=== PATIENT | male | born 1945 | race Caucasian/White ===

== ENCOUNTER → 2020-10-18 10:51 | Outpatient (BNVA) | payer MEDICARE, OTHER, SELFPAY | PROVIDERS: PCP Family Medicine; Visit Provider Urology | DX: N40.1 Benign prostatic hyperplasia with lower urinary tract symptoms (principal); R35.0 Frequency of micturition; R35.1 Nocturia; R39.12 Poor urinary stream; N13.8 Other obstructive and reflux uropathy | CPT/HCPCS: Q3014 ==

== ENCOUNTER → 2020-11-01 09:08 | Outpatient (BNVA) | payer MEDICARE, OTHER, SELFPAY | PROVIDERS: PCP Family Medicine; Visit Provider Urology | DX: R35.0 Frequency of micturition (principal); R39.12 Poor urinary stream; N40.1 Benign prostatic hyperplasia with lower urinary tract symptoms; N13.8 Other obstructive and reflux uropathy | CPT/HCPCS: Q3014 ==

== ENCOUNTER → 2021-06-12 15:07 | Outpatient (BNVA) | payer MEDICARE, OTHER, SELFPAY | PROVIDERS: Visit Provider Urology | CPT/HCPCS: Q3014 ==

== ENCOUNTER → 2021-07-24 14:49 | Outpatient (BNVA) | payer MEDICARE, OTHER, SELFPAY | PROVIDERS: PCP Family Medicine; Visit Provider Urology | DX: Z13.89 Encounter for screening for other disorder (principal) | CPT/HCPCS: Q3014 ==

== ENCOUNTER → 2022-09-11 16:26 | Outpatient (BNVA) | payer MEDICARE, OTHER, SELFPAY | PROVIDERS: Visit Provider Psychiatry & Neurology Psychiatry | DX: F32.5 Major depressive disorder, single episode, in full remission (principal); Z79.899 Other long term (current) drug therapy | CPT/HCPCS: Q3014 ==

== ENCOUNTER → 2022-09-18 11:19 | Outpatient (BNVA) | payer MEDICARE, OTHER, SELFPAY | PROVIDERS: PCP Family Medicine; Visit Provider Urology | DX: N40.1 Benign prostatic hyperplasia with lower urinary tract symptoms (principal); N13.8 Other obstructive and reflux uropathy; N32.81 Overactive bladder | CPT/HCPCS: 51798; 99212 ==

== ENCOUNTER → 2022-11-27 14:31 | Outpatient (BNVA) | payer MEDICARE, OTHER, SELFPAY | PROVIDERS: PCP Family Medicine; Visit Provider Psychiatry & Neurology Psychiatry | DX: F32.5 Major depressive disorder, single episode, in full remission (principal); F10.91 Alcohol use, unspecified, in remission | CPT/HCPCS: 90833; 99212 ==

== ENCOUNTER → 2022-12-26 09:05 | Outpatient (BNVA) | payer MEDICARE, OTHER, SELFPAY | PROVIDERS: PCP Family Medicine; Visit Provider Urology | DX: N32.81 Overactive bladder (principal); R35.0 Frequency of micturition; R35.1 Nocturia | CPT/HCPCS: 51798; 99212 ==

== ENCOUNTER 2023-04-30 11:07 | Outpatient (AMB) | payer MEDICARE, OTHER, SELFPAY ==
--- NOTE | 2023-04-30 11:51 | MHC.OFFVISPS ---
Intake Intake Visit Reasons: depression Allergies No Known Allergies Allergy (Verified 12/26/22 09:07) HPI- Psychiatric Chief Complaint: depression HPI Narrative: Patient is a 78-year-old male history of alcoholism active in a history of recurrent depression and anxiety somewhat worsened recently after sudden of his brother. Patient continues to have a life marked by periods in [facility] where he enjoys opera and connection with his children and grandchildren and living in immersed best uses. There is some degree of disconnection with his at times and he has been feeling somewhat more melancholy and has been trying to work through this. Past Psychiatric History: hx recurrent depression anxiety alcohol abuse in past Mental Status Exam Mental Status Exam Narrative: Mental Status Exam Narrative: Appearance: Casually dressed some anxiety noted on facial expression Behavior: Cooperative appropriate psychomotor: Within normal limits Speech: Normal volume and prosody Thought proccess logical and goal-directed Thought content: Future oriented no self-harming thoughts some melancholic thoughts feeling disconnected at times alone Mood: some anxiety and dysphoria Affect: Appropriate to mood somewhat constricted SI:denies HI:denies VH/AH:none Delusions: None Insight/judgment: Good insight and judgment help with spiritual beliefs Memory/cog: Intact Assessment and Plan Assessment & Plan (1) Major depressive disorder with single episode, in partial remission: Status: Acute Code(s): F32.4 - Major depressive disorder, single episode, in partial remission (2) Generalized anxiety disorder: Status: Acute Code(s): F41.1 - Generalized anxiety disorder (3) Alcohol use disorder in remission: Status: Acute Code(s): F10.91 - Alcohol use, unspecified, in remission (4) Overactive bladder: Status: Acute Code(s): N32.81 - Overactive bladder Plan The patient has had some increase in melancholy rumination somewhat appropriate and triggered by of his brother which was quite sudden. Patient at times can feel alienated which is a longstanding feeling for him for both his and can feel disconnected at times from his children. He does very much enjoyed the arts and particularly opera. Encouraged to see if he could better make his needs known or perhaps join a community that enjoys opera. This could be a source of connection. Discussed option of L methyl folate for augmentation . Also reviewed option to increase Effexor to 150 mg blood pressure unremarkable encouraged daily walking in nature as possible patient does have history of cerebral aneurysm which has been corrected and does have periodic radiological Observation of the brain to make sure there has been no change or other aneurysm aneurysm forming. Is clearly important that the patient's blood pressure stay in control. Encourage olguin mind group or other support group consider refuge recovery in addition to traditional 12 step AA Counseling and coordination of Care Pt. Self Management counselin Step program, Breathing, Behavior activation and Cognitive restructuring Medication management counseling: Effectiveness, Side effects and Dosing range Diagnosis and Prognosis Counseling: Adequacy of current interventions Details: I spent [40] minutes reviewing the record, seeing the patient and documenting in the medical record. Counseling provided to the patient/caregiver as outlined below. Addressed patient/caregiver concerns regarding current medication regime including effective adherence. Addressed patient/caregiver concerns regarding diagnosis and prognosis including accuracy of diagnosis, prognosis over time, impact of diagnosis. Addressed patient/caregiver concerns regarding impact of recent stressors. 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
== END 2023-04-30 12:16 | disposition home or self-care (01) ==
LOC: HO.HOP 11:07
PROVIDERS: PCP Family Medicine; Visit Provider Psychiatry & Neurology Psychiatry
DX: F32.4 Major depressive disorder, single episode, in partial remission (principal); F41.1 Generalized anxiety disorder; F10.91 Alcohol use, unspecified, in remission; N32.81 Overactive bladder
CPT/HCPCS: 90833; 99213

== ENCOUNTER → 2023-04-30 11:07 | Outpatient (BNVA) | payer MEDICARE, OTHER, SELFPAY | PROVIDERS: PCP Family Medicine; Visit Provider Psychiatry & Neurology Psychiatry | DX: F32.4 Major depressive disorder, single episode, in partial remission (principal); F41.1 Generalized anxiety disorder; F10.91 Alcohol use, unspecified, in remission; N32.81 Overactive bladder | CPT/HCPCS: 90833; 99212 ==

== ENCOUNTER 2023-06-12 11:50 | Outpatient (AMB) | payer MEDICARE, OTHER, SELFPAY ==
--- NOTE | 2023-06-12 11:44 | A.OFFPSYCH_ITS ---
Intake Intake Visit Reasons: Depression Allergies No Known Allergies Allergy (Verified 12/26/22 09:07) Medication List - Last Reconciled 06/12/23 by Yazan Antony MD losartan 50 mg PO DAILY solifenacin 10 mg PO DAILY 90 days venlafaxine ER 37.5 mg PO DAILY venlafaxine ER 75 mg PO DAILY HPI- Psychiatric Chief Complaint: Depression HPI Narrative: Pt is a 78 yo male doing better more active agin taking l methyl folate 15 mg `has been taking effexor 112.5 mg has been more social trying to be more engaged discussing how group home can be difficult transition last drank january 05o2 some periods of amotivation has been trying to be more ac tive can have brief periods of melancholy. Has much better relationship generally with his children no new medical concerns feeling more stable generally Past Psychiatric History: hx recurrent depression anxiety alcohol abuse in past Mental Status Exam Mental Status Exam Narrative: Mental Status Exam Narrative: Appearance: Casually dressed some anxiety noted on facial expression Behavior: Cooperative appropriate psychomotor: Within normal limits Speech: Normal volume and prosody Thought proccess logical and goal-directed Thought content: Future oriented no self-harming thoughts feeling much better Mood: euthymic Affect: Appropriate to mood SI:denies HI:denies VH/AH:none Delusions: None Insight/judgment: Good insight and judgment help with spiritual beliefs Memory/cog: Intact Assessment and Plan Assessment & Plan (1) Major depression in remission: Status: Acute Code(s): F32.5 - Major depressive disorder, single episode, in full remission (2) Generalized anxiety disorder: Status: Acute Code(s): F41.1 - Generalized anxiety disorder Plan cont effexor 112.5 mg l methyl folate encourage light box needed behavioral activation decrease isolation patient very active recovery this is chronic quite helpful to him and rewarding. Mood generally stable not overly depressed Counseling and coordination of Care Pt. Self Management counselin Step program, Sleep hygiene and Behavior activation Medication management counseling: Effectiveness Details: I spent [45] minutes reviewing the record, seeing the patient and documenting in the medical record. Counseling provided to the patient/caregiver as outlined below. Addressed patient/caregiver concerns regarding current medication regime including effective adherence. Addressed patient/caregiver concerns regarding diagnosis and prognosis including accuracy of diagnosis, prognosis over time, impact of diagnosis. Addressed patient/caregiver concerns regarding impact of recent stressors. 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
== END 2023-06-12 20:56 | disposition home or self-care (01) ==
LOC: HO.HOP 11:50
PROVIDERS: PCP Family Medicine; Visit Provider Psychiatry & Neurology Psychiatry
DX: F32.5 Major depressive disorder, single episode, in full remission (principal); F41.1 Generalized anxiety disorder
CPT/HCPCS: 90833; 99213

== ENCOUNTER → 2023-06-12 11:50 | Outpatient (BNVA) | payer MEDICARE, OTHER, SELFPAY | PROVIDERS: PCP Family Medicine; Visit Provider Psychiatry & Neurology Psychiatry | DX: F32.5 Major depressive disorder, single episode, in full remission (principal); F41.1 Generalized anxiety disorder; F10.21 Alcohol dependence, in remission | CPT/HCPCS: 90833; 99212 ==

== ENCOUNTER 2023-08-13 17:14 | Outpatient (AMB) | payer MEDICARE, OTHER, SELFPAY ==
--- NOTE | 2023-08-13 10:53 | MHC.OFFVISPS ---
Intake Intake Visit Reasons: depression Allergies No Known Allergies Allergy (Verified 12/26/22 09:07) HPI- Psychiatric Chief Complaint: depression HPI Narrative: Pt has generally been doing well remains sober very active in recovery no sig depressive episodes cardiac stable has been stable on effexor rare depressive sx Past Psychiatric History: hx recurrent depression anxiety alcohol abuse in past Mental Status Exam Mental Status Exam Narrative: Mental Status Exam Narrative: Appearance: Casually dressed some anxiety noted on facial expression Behavior: Cooperative appropriate psychomotor: Within normal limits Speech: Normal volume and prosody Thought proccess logical and goal-directed Thought content: Future oriented no self-harming thoughts feeling much better Mood: euthymic Affect: Appropriate to mood SI:denies HI:denies VH/AH:none Delusions: None Insight/judgment: Good insight and judgment help with spiritual beliefs Memory/cog: Intact Assessment and Plan Assessment & Plan (1) Generalized anxiety disorder: Status: Acute Code(s): F41.1 - Generalized anxiety disorder (2) Alcohol use disorder in remission: Status: Acute Code(s): F10.91 - Alcohol use, unspecified, in remission (3) Major depression in remission: Status: Acute Code(s): F32.5 - Major depressive disorder, single episode, in full remission Plan pt generally stable cont plan of care could inc effexor as needed cerebral aneurysm repair stable no cardiac issues brother recently had cardiac event Counseling and coordination of Care Pt. Self Management counselin Step program and Behavior activation Details-Self Mgmt counseling: issues related to managing Diagnosis and Prognosis Counseling: Impact of diagnosis on life functions and Adequacy of current interventions Details: I spent [35] minutes reviewing the record, seeing the patient and documenting in the medical record. Counseling provided to the patient/caregiver as outlined below. Addressed patient/caregiver concerns regarding current medication regime including effective adherence. Addressed patient/caregiver concerns regarding diagnosis and prognosis including accuracy of diagnosis, prognosis over time, impact of diagnosis. Addressed patient/caregiver concerns regarding impact of recent stressors. 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
== END 2023-08-13 17:15 | disposition home or self-care (01) ==
LOC: HO.HOP 17:14
PROVIDERS: PCP Family Medicine; Visit Provider Psychiatry & Neurology Psychiatry
DX: F41.1 Generalized anxiety disorder (principal); F10.91 Alcohol use, unspecified, in remission; F32.5 Major depressive disorder, single episode, in full remission
CPT/HCPCS: 90833; 99213

== ENCOUNTER → 2023-08-13 17:14 | Outpatient (BNVA) | payer MEDICARE, OTHER, SELFPAY | PROVIDERS: PCP Family Medicine; Visit Provider Psychiatry & Neurology Psychiatry | DX: F32.5 Major depressive disorder, single episode, in full remission (principal); F41.1 Generalized anxiety disorder; F10.91 Alcohol use, unspecified, in remission | CPT/HCPCS: 90833; 99212 ==

== ENCOUNTER 2023-12-30 11:09 | Outpatient (AMB) | payer MEDICARE, OTHER, SELFPAY ==
--- NOTE | 2023-12-30 11:29 | MHC.OFFVISPS ---
Intake Intake Visit Reasons: Depression Allergies No Known Allergies Allergy (Verified 12/31/23 08:33) Medication List - Last Reconciled 12/30/23 by Yazan Antony MD allopurinol 100 mg PO DAILY indomethacin 50 mg PO BID losartan 50 mg PO DAILY venlafaxine ER 37.5 mg PO DAILY venlafaxine ER 75 mg PO DAILY HPI- Psychiatric Chief Complaint: Depression HPI Narrative: Pt generally doing well lives here and [place] mood has generally been ok has light box uses occassionally . Recent MRI of brain showed stabilized aneurysm previously treated. No new lesions. Patient able to enjoy things future oriented enjoys traveling to [place] and back to [facility] where he lives. Has been stable on Effexor. He does have overactive bladder which can be problematic regarding quality of life Past Psychiatric History: hx recurrent depression anxiety alcohol abuse in past Mental Status Exam Mental Status Exam Narrative: Mental Status Exam Narrative: Appearance: Casually dressed some anxiety noted on facial expression Behavior: Cooperative appropriate psychomotor: Within normal limits Speech: Normal volume and prosody Thought proccess logical and goal-directed Thought content: Future oriented generally feeling grateful feeling like he is doing well connected with family Mood: euthymic Affect: Appropriate to mood SI:denies HI:denies VH/AH:none Delusions: None Insight/judgment: Good insight and judgment help with spiritual beliefs Memory/cog: Intact Assessment and Plan Assessment & Plan (1) Generalized anxiety disorder: Status: Acute Code(s): F41.1 - Generalized anxiety disorder (2) Alcohol use disorder in remission: Status: Acute Code(s): F10.91 - Alcohol use, unspecified, in remission (3) Major depression in remission: Status: Acute Code(s): F32.5 - Major depressive disorder, single episode, in full remission (4) Overactive bladder: Status: Acute Code(s): N32.81 - Overactive bladder Plan Continue Effexor discussed issues related to quality of life maintenance of sobriety Medications: Refilled venlafaxine ER 37.5 mg PO DAILY 90 caps 1RF venlafaxine ER 75 mg PO DAILY 90 caps 1RF Discontinued solifenacin Discontinued Reason: Patient no longer taking 10 mg PO DAILY 90 days 90 tabs 3RF N32.81 - Overactive bladder Counseling and coordination of Care Pt. Self Management counselin Step program, Breathing and Maintenance-social rhythm Medication management counseling: Effectiveness, Side effects and Dosing range Diagnosis and Prognosis Counseling: Adequacy of current interventions Details-Diagnosis/Prognosis counseling: Patient had very brief low. Otherwise has been stable Details: I spent [30] minutes reviewing the record, seeing the patient and documenting in the medical record. Counseling provided to the patient/caregiver as outlined below. Addressed patient/caregiver concerns regarding current medication regime including effective adherence. Addressed patient/caregiver concerns regarding diagnosis and prognosis including accuracy of diagnosis, prognosis over time, impact of diagnosis. Addressed patient/caregiver concerns regarding impact of recent stressors. 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 Substance History: hx alcohol dep sober x yrs active in recovery Trauma History: pos Coding Level of Care Code Est Pt Level 4 (55739) Diagnoses Generalized anxiety disorder F41.1 Alcohol use disorder in remission F10.91 Major depression in remission F32.5 Overactive bladder N32.81
== END 2023-12-30 12:07 | disposition home or self-care (01) ==
LOC: HO.HOP 11:09
PROVIDERS: PCP Family Medicine; Visit Provider Psychiatry & Neurology Psychiatry
DX: F41.1 Generalized anxiety disorder (principal); F10.91 Alcohol use, unspecified, in remission; F32.5 Major depressive disorder, single episode, in full remission; N32.81 Overactive bladder
CPT/HCPCS: 99214

== ENCOUNTER → 2023-12-30 11:09 | Outpatient (BNVA) | payer MEDICARE, OTHER, SELFPAY | PROVIDERS: PCP Family Medicine; Visit Provider Psychiatry & Neurology Psychiatry | DX: F41.1 Generalized anxiety disorder (principal); F10.91 Alcohol use, unspecified, in remission; F32.5 Major depressive disorder, single episode, in full remission; N32.81 Overactive bladder | CPT/HCPCS: 99212 ==

== ENCOUNTER 2023-12-31 08:23 | Outpatient (AMB) | payer MEDICARE, OTHER, SELFPAY ==
--- NOTE | 2023-12-31 08:32 | A.OFFVIS_ITS ---
Intake Intake Visit Reasons: 1Y PVR(VM To Confirm) Intake Note: Patient presents today for a yearly follow up and PVR Meds- None Allergies to Antibiotic- No Known Allergies Post Void Residual: 55ml Wallpaper Remover Steam Required: No Accompanied by: Self / Same As Patient Allergies No Known Allergies Allergy (Verified 12/31/23 08:33) Medication List - Last Reconciled 12/31/23 by Herbert Kee MD allopurinol 100 mg PO DAILY fesoterodine ER (Toviaz) 8 mg PO DAILY 30 days indomethacin 50 mg PO BID losartan 50 mg PO DAILY venlafaxine ER 37.5 mg PO DAILY venlafaxine ER 75 mg PO DAILY HPI HPI Comments History of Present Illness Details Alex Ayon is very pleasant male. He is a patient of Dr Manrique. He is seen for the following urologic conditions - lower urinary tract symptoms Twelve month follow-up Solifenacin at 10 mg PVR 55 Having difficulty with progression of bladder instability Involved bathroom planning and uses bathroom when out Discussed trial Toviaz with follow-up cystoscopy Lower Urinary Tract Symptoms: Primarily irritative symptoms Prior medications - Failed oxybutynin secondary to dry mouth and constipation, did not tolerate terazosin secondary to dizziness, Myrbetriq had minimal difference, solifenacin lost effect Current visit is for predominate imitative symptoms. Current treatment includes no medications Prostate Symptom Score 11/24 , Mild (0-8), Bother 3. - PSA 05/26 2.5 Symptoms include 11/24 , incomplete emptying, urgency, weak stream, and are progressing 03/24 , incomplete emptying, weak stream, and are improving. Results from testing include cystoscopy no abnormality seen 08/24 NAD renal/bladder us Yes date 03/16/2020 PVR 10 prostate size 40g Prostate volume 30-50gm. Testing at next visit will include bladder scan. Treatment plan - 2 month follow-up cystoscopy [facility] Medical History Cerebral aneurysm without rupture Generalized anxiety disorder Alcohol use disorder in remission Bladder outlet obstruction Incomplete emptying of bladder Weak urinary stream Urinary urgency Review of Systems Const Denies chills and Denies fever(s) Card Reports no additional complaints and Denies syncope Resp Denies cough GI Denies abdominal pain and Denies heartburn Reports as per HPI and Denies change in libido Neuro Denies syncope Psych Denies change in libido Endo Denies change in libido Physical Exam Const General: cooperative, healthy appearing, comfortable and no acute distress Orientation/consciousness: patient oriented x3 HEENT Face and sinus: Yes normal facial exam Mouth: moist mucous membranes Neck Neck: Yes normal visual inspection, Yes full ROM and Yes trachea midline Chest Chest palpation & inspection: normal inspection of the chest Resp Effort & Inspection: normal respiratory effort, able to speak in complete sentences and no respiratory distress GI Inspection: Yes normal to inspection Back/Spine/Pelvis Cervical Spine: normal cervical lordosis Thoracic/Lumbar Spine: thoracic and lumbar spine normal to inspection Skin General skin exam: no rashes or lesions noted Neuro General: patient oriented x3, gait normal, tone normal and moves all extremities Extrem General: Yes normal to inspection and Yes capillary refill normal Office Procedures Post Void Residual Post Residual Void Post Void Residual (PVR): 55 [id number] Void Residual by ultrasound Assessment & Plan Assessment & Plan (1) Urinary frequency: Code(s): R35.0 - Frequency of micturition (2) Weak urinary stream: Code(s): R39.12 - Poor urinary stream (3) BPH w urinary obs/LUTS: Code(s): N40.1 - Benign prostatic hyperplasia with lower urinary tract symptoms; N13.8 - Other obstructive and reflux uropathy Plan Two month follow-up cystoscopy Orders: Orders AMB Post Void Residual by ultrasound Today R33.9 - Retention of urine, unspecified Medications: New fesoterodine ER (Toviaz) 8 mg PO DAILY 30 tabs 1RF 30 days N32.0 - Bladder-neck obstruction, N32.81 - Overactive bladder, N39.41 - Urge incontinence Patient Instructions: Imaging studies, laboratory and physical exam results were discussed and reviewed in detail. No major barriers to patient understanding were identified. An opportunity to ask questions regarding the treatment plan was provided. All questions were answered. The patient expressed understanding and agreement with the above treatment plan. The patient is aware they should contact our office by phone for worsening of their current condition or the appearance of new urologic symptoms. Compliance is encouraged with any medications and followup testing that is ordered. It is a privilege to participate in the urologic care of your patient. If you have any questions or concerns regarding treatment for the above conditions, or other urologic issues, please do not hesitate to contact me. The office teleph one contact is [phone]. This note is constructed using voice recognition software. While every effort has been made to ensure accuracy licensing and registration director errors may have been included. Yours sincerely, Dr Herbert Kee MD, [facility] - Urology Providers of Expert, Compassionate Care for the Genitourinary System Coding Level of Care Code Est Pt Level 4 (82235) Diagnoses Urinary frequency R35.0 Weak urinary stream R39.12 BPH w urinary obs/LUTS N40.1; N13.8 CPT Codes Post Residual Void - PVR CPT Code: 24249-Kzum Void Residual by ultrasound ([id number])
== END 2023-12-31 08:48 | disposition home or self-care (01) ==
PROVIDERS: Visit Provider Urology
DX: N40.1 Benign prostatic hyperplasia with lower urinary tract symptoms (principal); R35.0 Frequency of micturition; R39.12 Poor urinary stream; N13.8 Other obstructive and reflux uropathy
CPT/HCPCS: 99214

== ENCOUNTER → 2023-12-31 08:23 | Outpatient (BNVA) | payer MEDICARE, OTHER, SELFPAY | PROVIDERS: Visit Provider Urology | DX: N40.1 Benign prostatic hyperplasia with lower urinary tract symptoms (principal); R39.12 Poor urinary stream; R39.15 Urgency of urination; N13.8 Other obstructive and reflux uropathy; R39.14 Feeling of incomplete bladder emptying; R35.0 Frequency of micturition; R33.8 Other retention of urine | CPT/HCPCS: 51798; 99212 ==

== ENCOUNTER 2024-03-02 09:01 | Outpatient (AMB) | payer MEDICARE, OTHER, SELFPAY ==
--- NOTE | 2024-03-02 09:08 | A.OFFVIS_ITS ---
Intake Visit Reasons: cysto Intake Note: Patient presents today for a CYSTOSCOPY Procedure: Meds: None Allergies to Antibiotic: No Known Allergies Blood Thinner: None Urinalysis test clear for Cysto? YES Disposable Uro-G HD Cystoscope Cannula: Lot: [id number] Exp: 10/07/2026 Cnp Required: No Accompanied by: Self / Same As Patient Allergies No Known Allergies Allergy (Verified 12/31/23 08:33) HPI Comments Details: Alex Ayon is very pleasant male. He is a patient of Dr Manrique. He is seen for the following urologic conditions - lower urinary tract symptoms Follow-up from trial of Toviaz with cystoscopy Grade 2 trabeculation with cellules Good response to Toviaz Six-month follow-up Add tamsulosin to optimal Lower Urinary Tract Symptoms: Primarily irritative symptoms Prior medications - Failed oxybutynin secondary to dry mouth and constipation, did not tolerate terazosin secondary to dizziness, Myrbetriq had minimal difference, solifenacin lost effect Current visit is for predominate imitative symptoms. Current treatment includes no medications Prostate Symptom Score 2/19 , Mild (0-8), Bother 3. - PSA 05/26 2.5 Symptoms include / , incomplete emptying, urgency, weak stream, and are progressing 03/24 , incomplete emptying, weak stream, and are improving. Results from testing include cystoscopy no abnormality seen 08/24 NAD renal/bladder us Yes date 03/16/2020 PVR 10 prostate size 40g Prostate volume 30-50gm. Testing at next visit will include bladder scan. Treatment plan - 2 month follow-up cystoscopy [facility] Medical History Cerebral aneurysm without rupture Generalized anxiety disorder Alcohol use disorder in remission Bladder outlet obstruction Incomplete emptying of bladder Weak urinary stream Urinary urgency Review of Systems Const Denies chills and Denies fever(s) Card Reports no additional complaints and Denies syncope Resp Denies cough GI Denies abdominal pain and Denies heartburn Reports as per HPI and Denies change in libido Neuro Denies syncope Psych Denies change in libido Endo Denies change in libido Physical Exam Const General: cooperative, healthy appearing, comfortable and no acute distress Orientation/consciousness: patient oriented x3 HEENT Face and sinus: Yes normal facial exam Mouth: moist mucous membranes Neck Neck: Yes normal visual inspection, Yes full ROM and Yes trachea midline Chest Chest palpation & inspection: normal inspection of the chest Resp Effort & Inspection: normal respiratory effort, able to speak in complete sentences and no respiratory distress GI Inspection: Yes normal to inspection Back/Spine/Pelvis Cervical Spine: normal cervical lordosis Thoracic/Lumbar Spine: thoracic and lumbar spine normal to inspection Skin General skin exam: no rashes or lesions noted Neuro General: patient oriented x3, gait normal, tone normal and moves all extremities Extrem General: Yes normal to inspection and Yes capillary refill normal Office Procedures Cystoscopy Consent Discussed risk and benefit or proposed procedure with the patient. Information consent for procedure given to the patient. Discussed technical aspects, risks, benefits and alternatives in full. Addressed all of the patient's questions and concerns regarding the procedure. The patient demonstrated knowledge and understanding. They wish to proceed with this procedure. Preparation The patient was prepped in the usual manner. A trolley operator was present and in the room. Genitalia was prepped with betadine solution in a sterile manner. Lidocaine Jelly 2% was placed into the urethra and 16Fr flexible Olympus cystoscope was inserted into the meatus after adequate lubrication. Procedure Cystoscopy performed using a disposable Urovue digital 16 Luxembourgish cystoscope. Meatus circumcised Urethra anterior and posterior urethra normal Prostatic Urethra unremarkable Bladder examination with retroflexion of cystoscope Bladder Orifices normal shape and position Bladder Capacity normal Trabeculations grade 2 Cellule Formation yes Diverticulum Formation - Mucosal Erythema - Bladder Tumor - 16483-[id number] DISPOSABLE SCOPE URO-G FLEXIBLE SCOPE Procedure code (CPT) selection complete Office Meds lidocaine HCl 2 % mucosal jelly in applicator Performing Provider: Herbert Kee MD [place] [facility] [place] [facility] Administered by: Scarlet Walton RN on 03/02/24 09:24 Dose Route Admin Location Dispensed Lot Number Expiration Date [facility] On Site [employer] Superintendent 10 mL intra-urethral 10 mL nitrofurantoin monohydrate/macrocrystals 100 mg capsule Performing Provider: Herbert Kee MD Performing [place] [facility] [facility] [place] [facility] Administered by: Scarlet Walton RN on 03/02/24 09:24 Dose Route Admin Location Dispensed Lot Number Expiration Date NDC On Site [employer] Superintendent 100 mg PO 1 cap naproxen 500 mg tablet Performing Provider: Herbert Kee MD Performing Location[place] [facility] [place] [facility] Administered by: Scarlet Walton RN on 03/02/24 09:24 Dose Route Admin Location Dispensed Lot Number Expiration Date NDC On Site [employer] Superintendent 500 mg PO 1 tab Results AMB Urinalysis, Automated UA Leukoctes 0 Elizabeth/uL Last Edit by SHERMAN Tran on 03/02/24 09:25 UA Nitrite Negative Last Edit by SHERMAN Tran on 03/02/24 09:25 UA Urobilinogen 0.2 mg/dL Last Edit by SHERMAN Tran on 03/02/24 09:2 5 UA Protein 15 mg/dL Last Edit by SHERMAN Tran on 03/02/24 09:25 UA pH 5.5 Last Edit by SHERMAN Tran on 03/02/24 09:25 UA Blood 0 Nacho/uL Last Edit by SHERMAN Tran on 03/02/24 09:25 UA Specific [place] 1.015 Last Edit by SHERMAN Tran on 03/02/24 09: 25 UA Ketone Negative Last Edit by SHERMAN Tran on 03/02/24 09:25 UA Bilirubin 0 mg/dL Last Edit by SHERMAN Tran on 03/02/24 09:25 UA Glucose 0 mg/dL Last Edit by SHERMAN Tran on 03/02/24 09:25 Results Reviewed Results Reviewed: Laboratory Last Values Urine pH (Auto) 5.5 03/02/24 09:13 Specific [place] (Auto) 1.015 03/02/24 09:13 Urine Protein (Auto) 15 mg/dL 03/02/24 09:13 Glucose (UA)(Auto) 0 mg/dL 03/02/24 09:13 Urine Ketones (Auto) Negative 03/02/24 09:13 Urine Blood (Auto) 0 Nacho/uL 03/02/24 09:13 Urine Nitrite (Auto) Negative 03/02/24 09:13 Urine Bilirubin (Auto) 0 mg/dL 03/02/24 09:13 Urine Urobilinogen (Auto) 0.2 mg/dL 03/02/24 09:13 Leukocyte Esterase (Auto) 0 Elizabeth/uL 03/02/24 09:13 Assessment & Plan Assessment & Plan (1) Overactive bladder: Code(s): N32.81 - Overactive bladder Category: Medical (2) Urinary frequency: Code(s): R35.0 - Frequency of micturition Category: Medical Plan Six-month follow-up Add tamsulosin to optimize Orders: Orders AMB Cystoscopy Today N13.8 - Other obstructive and reflux uropathy, N32.81 - Overactive bladder, N40.1 - Benign prostatic hyperplasia with lower urinary tract symptoms, R39.12 - Poor urinary stream AMB Urinalysis Automated Today Z13.9 - Encounter for screening, unspecified Medications: New tamsulosin 0.4 mg PO BEDTIME 90 caps 1RF 90 days N13.8 - Other obstructive and reflux uropathy, N40.1 - Benign prostatic hyperplasia with lower urinary tract symptoms, R35.1 - Nocturia Changed From fesoterodine ER (Toviaz) 8 mg PO DAILY 30 days 30 tabs 1RF N32.0 - Bladder-neck obstruction, N32.81 - Overactive bladder, N39.41 - Urge incontinence To fesoterodine ER (Toviaz) 8 mg PO DAILY 90 tabs 1RF 90 days N32.0 - Bladder- neck obstruction, N32.81 - Overactive bladder, N39.41 - Urge incontinence Patient Instructions: Imaging studies, laboratory and physical exam results were discussed and reviewed in detail. No major barriers to patient understanding were identified. An opportunity to ask questions regarding the treatment plan was provided. All questions were answered. The patient expressed understanding and agreement with the above treatment plan. The patient is aware they should contact our office by phone for worsening of their current condition or the appearance of new urologic symptoms. Compliance is encouraged with any medications and followup testing that is ordered. It is a privilege to participate in the urologic care of your patient. If you have any questions or concerns regarding treatment for the above conditions, or other urologic issues, please do not hesitate to contact me. The office telephone contact is [phone]. This note is constructed using voice recognition software. While every effort has been made to ensure accuracy landfill attendant errors may have been included. Yours sincerely, Dr Herbert Kee MD, [facility] - Urology Providers of Expert, Compassionate Care for the Genitourinary System Coding Level of Care Code Est Pt Level 4 (46749) Diagnoses Overactive bladder N32.81 Urinary frequency R35.0 CPT Codes Cystoscopy - CPT: 94740-Ytqcnoyica ([id number])
== END 2024-03-02 10:00 | disposition home or self-care (01) ==
PROVIDERS: PCP Family Medicine; Visit Provider Urology
DX: N40.1 Benign prostatic hyperplasia with lower urinary tract symptoms (principal); N13.8 Other obstructive and reflux uropathy; N32.81 Overactive bladder; R39.12 Poor urinary stream; R35.0 Frequency of micturition; Z13.9 Encounter for screening, unspecified
CPT/HCPCS: 52000; 99214

== ENCOUNTER → 2024-03-02 09:01 | Outpatient (BNVA) | payer MEDICARE, OTHER, SELFPAY | PROVIDERS: PCP Family Medicine; Visit Provider Urology | DX: N32.81 Overactive bladder (principal); N40.1 Benign prostatic hyperplasia with lower urinary tract symptoms; N13.8 Other obstructive and reflux uropathy; R35.0 Frequency of micturition; R39.12 Poor urinary stream | CPT/HCPCS: 52000; 81003; 99212 ==

== ENCOUNTER 2024-03-31 11:02 | Outpatient (AMB) | payer MEDICARE, OTHER, SELFPAY ==
--- NOTE | 2024-03-31 11:34 | A.OFFPSYCH_ITS ---
Intake Intake Visit Reasons: depression Allergies No Known Allergies Allergy (Verified 12/31/23 08:33) Medication List - Last Reconciled 03/31/24 by Yazan Antony MD alfuzosin ER 10 mg PO DAILY 30 days allopurinol 100 mg PO DAILY fesoterodine ER (Toviaz) 8 mg PO DAILY 90 days indomethacin 50 mg PO BID losartan 50 mg PO DAILY venlafaxine ER 37.5 mg PO DAILY venlafaxine ER 75 mg PO DAILY HPI- Psychiatric Chief Complaint: depression HPI Narrative: Patient seen in psychiatric follow-up. Patient generally doing well remains sober feeling connected with his children in [place] traveling back and forth things seem fairly stable with his . PHQ-9 GED are minimal with good quality of life. Patient has nl follow-up on aneurysm that was treated a number of years ago. He remains sober Past Psychiatric History: hx recurrent depression anxiety alcohol abuse in past Mental Status Exam Mental Status Exam Narrative: Mental Status Exam Narrative: Appearance: Casually dressed Behavior: Cooperative appropriate psychomotor: Within normal limits Speech: Normal volume and prosody Thought proccess logical and goal-directed Thought content: Future oriented generally feeling grateful feeling like he is doing well connected with family ongoing Mood: euthymic Affect: Appropriate to mood SI:denies HI:denies VH/AH:none Delusions: None Insight/judgment: Good insight and judgment help with spiritual beliefs Memory/cog: Intact Assessment and Plan Assessment & Plan (1) Generalized anxiety disorder: Status: Acute Code(s): F41.1 - Generalized anxiety disorder (2) Major depression in remission: Status: Acute Code(s): F32.5 - Major depressive disorder, single episode, in full remission (3) Alcohol use disorder in remission: Status: Acute Code(s): F10.91 - Alcohol use, unspecified, in remission (4) Overactive bladder: Status: Acute Code(s): N32.81 - Overactive bladder Plan try venlafaxine in ely consider dec 75 mg in case the patient has overactive bladder symptoms are contributed to by venlafaxine risks benefits discussed follow-up in July patient is being followed by Dr. Noble in urology is mood has otherwise been stable Counseling and coordination of Care Details: I spent [] minutes reviewing the record, seeing the patient and documenting in the medical record. Counseling provided to the patient/caregiver as outlined below. Addressed patient/caregiver concerns regarding current medication regime including effective adherence. Addressed patient/caregiver concerns regarding diagnosis and prognosis including accuracy of diagnosis, prognosis over time, impact of diagnosis. Addressed patient/caregiver concerns regarding impact of recent stressors. 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
== END 2024-03-31 11:47 | disposition home or self-care (01) ==
LOC: HO.HOP 11:02
PROVIDERS: PCP Family Medicine; Visit Provider Psychiatry & Neurology Psychiatry
DX: F41.1 Generalized anxiety disorder (principal); F32.5 Major depressive disorder, single episode, in full remission; F10.91 Alcohol use, unspecified, in remission; N32.81 Overactive bladder
CPT/HCPCS: 99214

== ENCOUNTER → 2024-03-31 11:02 | Outpatient (BNVA) | payer MEDICARE, OTHER, SELFPAY | PROVIDERS: PCP Family Medicine; Visit Provider Psychiatry & Neurology Psychiatry | DX: F41.1 Generalized anxiety disorder (principal); F32.5 Major depressive disorder, single episode, in full remission; F10.91 Alcohol use, unspecified, in remission; N32.81 Overactive bladder | CPT/HCPCS: 99212 ==

== ENCOUNTER 2024-04-07 10:47 | Outpatient (AMB) | payer MEDICARE, OTHER, SELFPAY ==
--- NOTE | 2024-04-07 11:05 | MHC.OFFVIS ---
Intake Visit Reasons: discuss procedure/failed meds Allergies No Known Allergies Allergy (Verified 12/31/23 08:33) Medication List - Last Reconciled 04/07/24 by Herbert Kee MD alfuzosin ER 10 mg PO DAILY 30 days allopurinol 100 mg PO DAILY fesoterodine ER (Toviaz) 8 mg PO DAILY 90 days indomethacin 50 mg PO BID losartan 50 mg PO DAILY venlafaxine ER 37.5 mg PO DAILY venlafaxine ER 75 mg PO DAILY HPI Comments Details: Alex Ayon is very pleasant male. He is a patient of Dr Manrique. He is seen for the following urologic conditions - lower urinary tract symptoms Dizziness with alpha-stan Would like to stay just on Toviaz Prescription for 4 mg provided Lower Urinary Tract Symptoms: Primarily irritative symptoms Prior medications - Failed oxybutynin secondary to dry mouth and constipation, did not tolerate terazosin secondary to dizziness, Myrbetriq had minimal difference, solifenacin lost effect Current visit is for predominate imitative symptoms. Current treatment includes no medications Prostate Symptom Score 2 , Mild (0-8), Bother 3. - PSA 05/26 2.5 Symptoms include / , incomplete emptying, urgency, weak stream, and are progressing 03/24 , incomplete emptying, weak stream, and are improving. Results from testing include cystoscopy no abnormality seen 08/24 NAD renal/bladder us Yes date 03/16/2020 PVR 10 prostate size 40g Prostate volume 30-50gm. Testing at next visit will include bladder scan. Treatment plan - 2 month follow-up cystoscopy [facility] Medical History Cerebral aneurysm without rupture Generalized anxiety disorder Alcohol use disorder in remission Bladder outlet obstruction Incomplete emptying of bladder Weak urinary stream Urinary urgency Review of Systems Const Denies chills and Denies fever(s) Card Reports no additional complaints and Denies syncope Resp Denies cough GI Denies abdominal pain and Denies heartburn Reports as per HPI and Denies change in libido Neuro Denies syncope Psych Denies change in libido Endo Denies change in libido Physical Exam Const General: cooperative, healthy appearing, comfortable and no acute distress Orientation/consciousness: patient oriented x3 HEENT Face and sinus: Yes normal facial exam Mouth: moist mucous membranes Neck Neck: Yes normal visual inspection, Yes full ROM and Yes trachea midline Chest Chest palpation & inspection: normal inspection of the chest Resp Effort & Inspection: normal respiratory effort, able to speak in complete sentences and no respiratory distress GI Inspection: Yes normal to inspection Back/Spine/Pelvis Cervical Spine: normal cervical lordosis Thoracic/Lumbar Spine: thoracic and lumbar spine normal to inspection Skin General skin exam: no rashes or lesions noted Neuro General: patient oriented x3, gait normal, tone normal and moves all extremities Extrem General: Yes normal to inspection and Yes capillary refill normal Assessment & Plan Assessment & Plan (1) Overactive bladder: Code(s): N32.81 - Overactive bladder Category: Medical (2) Urinary frequency: Code(s): R35.0 - Frequency of micturition Category: Medical (3) Nocturia more than twice per night: Code(s): R35.1 - Nocturia Category: Medical Plan Six-month follow-up Medications: Refilled fesoterodine ER (Toviaz) 8 mg PO DAILY 90 tabs 1RF 90 days N32.81 - Overactive bladder, N32.0 - Bladder-neck obstruction, N39.41 - Urge incontinence Patient Instructions: Imaging studies, laboratory and physical exam results were discussed and reviewed in detail. No major barriers to patient understanding were identified. An opportunity to ask questions regarding the treatment plan was provided. All questions were answered. The patient expressed understanding and agreement with the above treatment plan. The patient is aware they should contact our office by phone for worsening of their current condition or the appearance of new urologic symptoms. Compliance is encouraged with any medications and followup testing that is ordered. It is a privilege to participate in the urologic care of your patient. If you have any questions or concerns regarding treatment for the above conditions, or other urologic issues, please do not hesitate to contact me. The office telephone contact is [phone]. This note is constructed using voice recognition software. While every effort has been made to ensure accuracy locomotive observer errors may have been included. Yours sincerely, Dr Herbert Kee MD, [facility] - Urology Providers of Expert, Compassionate Care for the Genitourinary System Coding Level of Care Code Est Pt Level 3 (45782) Diagnoses Overactive bladder N32.81 Urinary frequency R35.0 Nocturia more than twice per night R35.1
== END 2024-04-07 11:54 | disposition home or self-care (01) ==
PROVIDERS: PCP Family Medicine; Visit Provider Urology
DX: N32.81 Overactive bladder (principal); R35.0 Frequency of micturition; R35.1 Nocturia
CPT/HCPCS: 99213

== ENCOUNTER → 2024-04-07 10:47 | Outpatient (BNVA) | payer MEDICARE, OTHER, SELFPAY | PROVIDERS: PCP Family Medicine; Visit Provider Urology | DX: N32.81 Overactive bladder (principal); R35.0 Frequency of micturition; R35.1 Nocturia | CPT/HCPCS: 99212 ==

== ENCOUNTER 2024-06-30 10:52 | Outpatient (AMB) | payer MEDICARE, OTHER, SELFPAY ==
--- NOTE | 2024-06-30 11:32 | MHC.OFFVISPS ---
Intake Intake Visit Reasons: depression Allergies No Known Allergies Allergy (Verified 12/31/23 08:33) HPI- Psychiatric Chief Complaint: depression HPI Narrative: Pt seen in f/u mood has been somewhat anxious issues related to his d who has been binge drinking had also been dealing with buying [employer] [address] in [facility] daughter Past Psychiatric History: hx recurrent depression anxiety alcohol abuse in past Assessment and Plan Assessment & Plan Medications: Refilled venlafaxine ER 37.5 mg PO DAILY 90 caps 1RF venlafaxine ER 75 mg PO DAILY 90 caps 1RF Counseling and coordination of Care Details: I spent [48] minutes reviewing the record, seeing the patient and documenting in the medical record. Counseling provided to the patient/caregiver as outlined below. Addressed patient/caregiver concerns regarding current medication regime including effective adherence. Addressed patient/caregiver concerns regarding diagnosis and prognosis including accuracy of diagnosis, prognosis over time, impact of diagnosis. Addressed patient/caregiver concerns regarding impact of recent stressors. 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
== END 2024-06-30 12:06 | disposition home or self-care (01) ==
LOC: HO.HOP 10:52
PROVIDERS: PCP Family Medicine; Visit Provider Psychiatry & Neurology Psychiatry
DX: F33.1 Major depressive disorder, recurrent, moderate (principal)
CPT/HCPCS: 90833; 99213

== ENCOUNTER → 2024-06-30 10:52 | Outpatient (BNVA) | payer MEDICARE, OTHER, SELFPAY | PROVIDERS: PCP Family Medicine; Visit Provider Psychiatry & Neurology Psychiatry | DX: F33.1 Major depressive disorder, recurrent, moderate (principal) | CPT/HCPCS: 99212 ==

== ENCOUNTER 2024-10-13 11:38 | Outpatient (AMB) | payer MEDICARE, OTHER, SELFPAY ==
--- OUTSIDE RECORDS SUMMARY | 2024-10-13 11:50 | XMS_ITS | Data Portability ---
Author Organization [place] - .[facility], [employer] Address [address] [place] [id number] Assessment No assessment recorded. Plan of Treatment Reminders Order Date Submit Date Provider Last Modified By Organization Details Last Modified Time Details Appointments None record ed. Lab None record ed. Referral None record ed. Procedures None record ed. Surgeries None record ed. Imaging None record ed. Medication Orders None record ed. Patient TargetsNo targets recorded. Patient Instructions Encounter Date Encounter Id Patient Instructions Last Modified By Organization Details Last Modified Time 11/12/2022 [id number] A healthy lifestyle: care instructions [email or web address] Not available 11/12/2022 19:36:07 Thank you for visiting [facility]. There are two ways to view your lab results: : ? 1. ?? The [employer] serena is available to all patients 18 and older in the Serena Store and [employer] Play. First-time serena users will need to create an account; please note you? ll need to select a login and password for the serena versus just using your patient portal login credentials. Your lab results will be posted to the [employer]Charts serena as soon as they? re available. ? 2. ?? Via email , as soon as lab results are available. If you don? t receive an email within the estimated time frame, give our Aftercare team a call at [phone]. [email or web address] Not available 11/12/2022 16:07:45 Reason for Referral None Reported. Medical Equipment None Reported. Vitals Date Recorded Body height Body mass index (BMI) Body weight Oxygen saturation Oxygen saturation in Arterial blood by Pulse oximetry Respiratory rate Body temperature Heart rate Systolic blood pressure Diastolic blood pressure Provider Name and Address Organization Details Last Updated DateTime 3 172.72 cm 35 kg/m2 927873. 25 g 98 % 98 % 16 /min 98 [degF] 70 /min 107 mm[Hg] 80 mm[Hg] Amrik Josué MELANIE - .[facility], [place], [facility] 3 16:14:22 Social History Question Answer Notes LastModified by Organizat ion Details LastModified Time RISK LEVEL - Segmentation Level 2 - Chronic Dx/primary Care Treatable [id number] Information not available 02/21/2023 Sex: Unknown Functional Status None recorded. Mental Status None recorded. Family History Nothing Reported. Medical History No medical history recorded. Past Encounters Encounter ID Performer Location Encounter Start Date Encounter Closed Date Diagnosis/Indication Diagnosis SNOMED-CT Code Diagnosis ICD10 Code Diagnosis Note [id number] Adelfo Lopez MD [facility] [place] [address] [place] [address] 11/12/2022 15:50:29 11/12/2022 16:31:10 Removal of suture [id number] Z48.02 Pt had dissolveab le sutures which had already dissolved. Health Concerns Section Related Observation LastModified by Organization Detai ls LastModified Time None Recorded Concern Status LastModified by Organization Details LastModified Time None Recorded Advance Directives Directive None Recorded Payers Encounter Date Sequence Insurance Name Policy Number Policy Sawyer Covered Member ID Sawyer Member ID Guarantor Name 11/12/2022 2 [facility] [id number] [facility] [id number] Alex yAon 11/12/2022 1 [place] Alex Ayon [id number] Alex Ayon Notes Date Note Type Note Provider Name and Address Organization Details Recorded Time 11/12/2022 text/html Suture Removal / Staple Removal - cmdReported bypatient.Patient presents forSuture removal / staple removal Pertinent findings:No pain; No fever; No redness around wound; No warmth; No wound discharge; No itch; No limb pain; No trauma Tetanus status:Tetanus status: up to date 77 y/o M is currently here for a suture removal.Pt had sutures placed at an ER in [place] 10 days ago for a carpal tunnel surgery. Pt cannot recall how many sutures were placed. Adelfo Lopez MD [address] [place] [address],[facility], [place], [address], [facility] - .[facility], [place], [facility] 11/12/2022 18:25:11
--- OUTSIDE RECORDS SUMMARY | 2024-10-13 11:50 | XMS_ITS | Data Portability ---
Author Organization [place] [facility] Address [address] [place] [address] Care Team Providers Care Global Supply Chain Director Name Role Phone DEB BLAND Referring Provider [phone] Assessment Encounter Date Assessment Date Assessment LastModified by Organization Details LastModified Time 12/20/2016 12/20/2016 Custom Device: Is a custom device needed for this patient? NO Reasons for Custom Device: Explain Reasoning: The patient will be seen on an as needed basis. Orthosis: is in stock and delivered today. Device delivered: Prefab, OTS If Prefab, Custom Fit, explain modifications - what was done and why: If Custom device, state reasons and provide narrative: Explain Reasoning: Orthotic Goals: Choose all that apply Provide Support Limit Motion Positioning Improve Stability Improve Gait Other (please specify): thomas Not available 12/20/2016 16:43:41 Plan of Treatment Reminders Order Date Submit [...] Modified By Organization Details Last Modified Time 12/20/2016 [id number] Device provided has good fit and function. Patient {{agrees* does not agree}} with my assessment. Patient {{does* does not}} understand wear and care of device. Patient {{does* does not}} understand how to don and doff the device. Patient {{received* did not receive}} written instructions. Patient {{was* was not}} provided with my business card and agrees to call if any problems. thomas Not available 12/20/2016 16:41:15 Reason for Referral None Reported. Procedures Surgical History Date Name Laterality Status Provider Name and Address Organization Details Recorded Time 7 BI Procedures completed Liammarlee See BRE BRACE 12/20/2016 16:43:18 Imaging Results None recorded. Procedure Notes None recorded. Medical Equipment None Reported. Vitals None Recorded Social History None recorded. Functional Status None recorded. Mental Status None recorded. Family History Nothing Reported. Medical History No medical history recorded. Past Encounters Encounter ID Performer Location Encounter Start Date Encounter Closed Date Diagnosis/Indication Diagnosis SNOMED-CT Code Diagnosis ICD10 Code Diagnosis Note [id number] Liam Pires [facility] [address] [place] [address] 12/20/2016 16:21:56 12/25/2016 07:48:48 Bilateral carpal tunnel syndrome 9903079491 4453968 G56.03 Subluxatio n of patellofemoral joint 966767589 S83.012A Health Concerns Section Related Observation LastModified by Organization Detai ls LastModified Time None Recorded Concern Status LastModified by Organization Details LastModified Time None Recorded Advance Directives Directive None Recorded Payers Encounter Date Sequence Insurance Name Policy Number Policy Sawyer Covered Member ID Sawyer Member ID Guarantor Name 12/20/2016 1 [employer] - [facility] [id number] [facility] [id number] Alex Ayon Notes Date Note Type Note Provider Name and Address Organization Details Recorded Time 12/20/2016 text/html BI HPIReported bypatient.patient is:Out Patient Pain?location(left knee);level 3/10 Numbness?location( hands, L & R)Notes:Patient fit with size large, hinged, glasgow brace to left knee. Also fit with bilateral WHOS to left and right hands. ALLYSON Kline BRACE 12/20/2016 17:05:10
--- OUTSIDE RECORDS SUMMARY | 2024-10-13 11:51 | XMS_ITS | Data Portability ---
Author Organization [facility], [facility] Address [address] [place] [address] Care Team Providers Care Hides Soaker Name Role Phone MEEISAÍAS ESTRADA [facility] [phone] Assessment Encounter Date Assessment Date Assessment LastModified by Organization Details LastModified Time 05/28/2016 05/28/2016 71 year old male with findings most consistent following a left TKR, he lacks quad strength and his terminal extensio is limited to -10 Patient has significant functional limitation in their activities of daily living and exercise capacity. Patient Goals:??to be able to walk on stairs and level ground for community distances, to have fiull knee arom , his pain level is minimal at 2/10 Clinical Goals: 1. Demonstrate symmetric pain free active, passive and resisted motions of the trunk and lower extremities. 2. Demonstrate sufficient muscular endurance to meet functional demands. Skilled physical therapy is medically necessary?? to safely and progressively address impairments and functional limitations as outlined above. Treatment Plan: Patient to return 10 times over 12 weeks. We expect significant change in pain, impairment and function in this time frame. Treatment to Include: Therapeutic exercise and manual therapy faustino Not available 05/28/2016 12:51:22 05/31/2016 05/31/201611/15 ??11/15?? 71 year old male with findings most consistent following a left TKR, he lacks quad strength and his terminal extension is limited to 0 degrees after mobilization and stretching started biking and squats, gait training of stairs and therex were provided Patient has significant functional limitation in their activities of daily living and exercise capacity. Patient Goals:??to be able to walk on stairs and level ground for community distances, to have fiull knee arom , his pain level is minimal at 2/10 Clinical Goals: 1. Demonstrate symmetric pain free active, passive and resisted motions of the trunk and lower extremities. 2. Demonstrate sufficient muscular endurance to meet functional demands. Skilled physical therapy is medically necessary?? to safely and progressively address impairments and functional limitations as outlined above. Treatment Plan: Patient to return 10 times over 12 weeks. We expect significant change in pain, impairment and function in this time frame. Treatment to Include: Therapeutic exercise and manual therapy [email or web address] Not available 05/31/2016 09:01:29 06/04/2016 06/04/201612/13 ? 71 year old male with findings most consistent following a left TKR, he lacks quad strength and his terminal extension is limited to 0 degrees after mobilization and stretching started biking and squats, gait training of stairs and therex were provided 135 degrees of flexion is possible Patient has significant functional limitation in their activities of daily living and exercise capacity. Patient Goals:??to be able to walk on stairs and level ground for community distances, to have fiull knee arom , his pain level is minimal at 2/10 Clinical Goals: 1. Demonstrate symmetric pain free active, passive and resisted motions of the trunk and lower extremities. 2. Demonstrate sufficient muscular endurance to meet functional demands. Skilled physical therapy is medically necessary?? to safely and progressively address impairments and functional limitations as outlined above. Treatment Plan: Patient to return 10 times over 12 weeks. We expect significant change in pain, impairment and function in this time frame. Treatment to Include: Therapeutic exercise and manual therapy [email or web address] Not available 06/04/2016 14:54:41 06/07/2016 06/07/201601/13 ? 71 year old male with findings most consistent following a left TKR, he lacks quad strength , this was addressed with changes to his hep and with quad exercise here, his range is steady at 0 to 135, his only limitation functionally is descending staris Patient has significant functional limitation in their activities of daily living. activities of daily living and work capacity. activities of daily living and exercise capacity. activities of daily living and recreation. Patient Goals:??to be able to walk on stairs and level ground for community distances, to have fiull knee arom , his pain level is minimal at 2/10 Clinical Goals: 1. Demonstrate symmetric pain free active, passive and resisted motions of the neck and upper extremities shoulder elbow, forearm and wrist trunk and lower extremities hip knee ankle . 2. Demonstrate sufficient muscular endurance to meet functional demands. Skilled physical therapy is medically necessary?? to safely and progressively address impairments and functional limitations as outlined above. Treatment Plan: Patient to return 1 2 3 4 1-2 2-3 3-4 times over 4 5 6 7 8 1-2 3-5 4-6 6-8 weeks. We expect significant change in pain, impairment and function in this time frame. Treatment to Include: Therapeutic exercise and manual therapy faustino Not available 06/07/2016 10:04:04 06/18/2016 06/18/201603/15 ? 71 year old male with findings most consistent following a left TKR, he has 4+/5 quad strength , his range is steady at 0 to 135, his only limitation functionally is descending stairs he is now able to ambulate community distances and stairs without limitation, he has met his goals and PT will be dced, his hep is to continue Patient has significant functional limitation in their activities of daily living. activities of daily living and work capacity. activities of daily living and exercise capacity. activities of daily living and recreation. Patient Goals:??to be able to walk on stairs and level ground for community distances, to have fiull knee arom , his pain level is minimal at 2/10 Clinical Goals: 1. Demonstrate symmetric pain free active, passive and resisted motions of the neck and upper extremities shoulder elbow, forearm and wrist trunk and lower extremities hip knee ankle . 2. Demonstrate sufficient muscular endurance to meet functional demands. Skilled physical therapy is medically necessary?? to safely and progressively address impairments and functional limitations as outlined above. Treatment Plan: to dcPT , his hep is to continue [email or web address] Not available 06/19/2016 06:52:38 Plan of Treatment Reminders Order Date Submit [...] Modified By Organization Details Last Modified Time 05/28/2016 [id number] Learning About Being Physically Active Not available 09/21/2016 04:05:49 Mobility Current G8978 {{CH (0%) CI (1-19%) CJ (20-39%)* CK (40-59%) CL (60-79%) CM (80-99%) CN (100%)}} Goal G8979 {{CH (0%)* CI (1-19%) CJ (20-39%) CK (40-59%) CL (60-79%) CM (80-99%) CN (100%)}} Discharge G8980 {{CH (0%) CI (1-19%) CJ (20-39%) CK (40-59%) CL (60-79%) CM (80-99%) CN (100%)}} [email or web address] Not available 05/28/2016 12:52:25 05/31/2016 [id number] Learning About Being Physically Active Not available 09/21/2016 04:06:40 06/04/2016 [id number] Learning About Being Physically Active 17 Not available 09/21/2016 04:06:23 06/07/2016 [id number] Learning About Being Physically Active 17 Not available 09/21/2016 04:06:30 06/18/2016 [id number] Learning About Being Physically Active 17 Not available 09/21/2016 04:06:45 Mobility Current G8978 {{CH (0%) CI (1-19%) CJ (20-39%) CK (40-59%) CL (60-79%) CM (80-99%) CN (100%)}} Goal G8979 {{CH (0%)* CI (1-19%) CJ (20-39%) CK (40-59%) CL (60-79%) CM (80-99%) CN (100%)}} Discharge G8980 {{CH (0%)* CI (1-19%) CJ (20-39%) CK (40-59%) CL (60-79%) CM (80-99%) CN (100%)}} [email or web address] Not available 06/19/2016 06:52:57 Reason for Referral None Reported. 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 Procedures Surgical History Date Name Laterality Status Provider Name and Address Organization Details Recorded Time 06/18/20 16 19230: Therapeutic Exercise completed Isaías Mosley, PT [address] [place], [address], [facility] 06/19/2016 06:50:31 06/07/20 16 73141: Therapeutic Exercise completed Isaías Mosley, PT [address] [place], [address], [facility] 06/07/2016 10:02:17 06/04/20 16 35357: Therapeutic Exercise completed Isaías Mosley, PT [address] [place], [address], [facility] 06/04/2016 14:54:01 05/31/20 16 94566: Therapeutic Exercise completed Isaías Mosley, PT [address] [place], [address], [facility] 05/31/2016 08:59:11 05/28/20 16 20818: PT Evaluation completed Isaías Mosley, PT [address] [place], [address], [facility] 05/28/2016 12:48:39 01/17/20 15 Gudino - Colonoscopy completed Edilson Gudino MD [address] [place], [address], [facility] 01/16/2015 14:52:20 01/28/20 14 Current <strong>Medicat ions</strong> not Documented, Reason not Given (G8428) completed Isaías Mosley, PT [address] [place], [address], [facility] 01/27/2014 14:57:45 01/05/20 14 Current <strong>Medicat ions</strong> not Documented, Reason not Given (G8428) completed Isaías Mosley, PT [address] [place], [address], [facility] 01/05/2014 06:41:14 08/13/20 13 <strong>Pain</s mac> Assessment and Follow-up (G8730) completed Isaías Mosley, PT [address] [place], [address], [facility] 08/13/2013 15:02:34 08/13/20 13 <strong>Falls</ strong> Risk Assessment - No Risk (1101F) completed Isaías Mosley, PT [address] [place], [address], [facility] 08/13/2013 15:02:34 08/13/20 13 <strong>Functio nal</strong> Outcome w/ POC (G8539) completed Isaías Mosley, PT [address] [place], [address], [facility] 08/13/2013 15:02:34 01/02/20 13 Treatment and Advice completed Isaías Mosley, PT [address] [place], [address], [facility] 01/01/2013 10:33:46 12/03/19 05 Lesion removal colonoscopy completed Not Available [facility] 08/22/2011 06:05:52 Imaging Results None recorded. Procedure Notes None recorded. Medical Equipment None Reported. Vitals None Recorded Social History None recorded. Functional Status None recorded. Mental Status None recorded. Family History Nothing Reported. Medical History No medical history recorded. Past Encounters Encounter ID Performer Location Encounter Start Date Encounter Closed Date Diagnosis/Indication Diagnosis SNOMED-CT Code Diagnosis ICD10 Code Diagnosis Note [id number] [address] [address] 12/03/2004 10:50:44 12/04/2004 09:31:56 [id number] [facility], [address] [address] 10/09/2012 08:50:08 10/12/2012 10:19:33 [id number] [facility], [address] [address] 10/16/2012 08:33:47 10/19/2012 10:40:45 [id number] [facility], [address] [address] 10/23/2012 08:31:28 10/26/2012 10:17:59 [id number] Dominique Arreaga [facility], [facility] [place] [address] 10/30/2012 10:58:37 11/02/2012 10:24:25 [id number] Dominique Whitley [facility], [facility] [place] [address] 12/22/2012 12:30:18 12/23/2012 10:56:06 [id number] Dominique [facility]ley [facility], [address] [place] [address] 12/24/2012 08:00:12 12/25/2012 09:26:31 [id number] Dominique Whitley [facility], [facility] [place] [address] 12/29/2012 12:36:46 12/30/2012 09:25:17 [id number] Dominique Whitley [facility], [address] [place] [address] 01/01/2013 10:05:52 01/05/2013 08:54:24 [id number] Dominique [facility]re[facility], [address] [place] [address] 08/13/2013 09:25:36 08/17/2013 09:52:02 Shoulder pain [id number] Dominique May [facility], [facility] [place] [address] 08/16/2013 09:29:11 08/18/2013 08:26:30 Shoulder pain [id number] Dominique [facility]ley [facility], [address] [place] [address] 08/20/2013 09:25:57 08/23/2013 09:44:34 Shoulder pain [id number] Dominique [facility], [address] [place] [address] 08/23/2013 16:34:05 08/24/2013 09:43:23 Shoulder pain [id number] Dominique Arreaga [facility], [facility] [place] [address] 08/27/2013 10:03:38 08/30/2013 11:21:27 Shoulder pain [id number] Dominique [facility], [address] [place] [address] 08/30/2013 09:35:03 08/31/2013 09:43:35 Shoulder pain [id number] Dominique Arreaga [facility], [facility] [place] [address] 09/08/2013 06:35:41 09/08/2013 09:07:11 Shoulder pain [id number] Dominique Arreaga [facility], [facility] [place] [address] 09/10/2013 08:54:56 09/13/2013 08:19:07 Shoulder pain [id number] Dominique Arreaga [facility], [facility] [place] [address] 09/14/2013 07:54:52 09/15/2013 10:45:00 Shoulder pain [id number] Dominique Arreaga [facility], [facility] [place] [address] 09/17/2013 09:26:42 09/21/2013 10:45:56 Shoulder pain [id number] Dominique Arreaga [facility], [address] [place] [address] 09/22/2013 08:03:07 09/23/2013 11:01:04 Shoulder pain [id number] Dominique Arreaga [facility], [address] [place] [address] 09/24/2013 10:32:44 09/27/2013 09:43:13 Shoulder pain [id number] Dominique Arreaga [facility], [address] [place] [address] 10/04/2013 11:29:16 10/05/2013 10:36:59 Shoulder pain [id number] Dominique Arreaga [facility], [address] [place] [address] 10/07/2013 10:32:23 10/08/2013 09:52:35 Shoulder pain [id number] Dominique Arreaga [facility], [facility] [place] [address] 10/12/2013 08:58:15 10/13/2013 09:24:30 Shoulder pain [id number] Dominique Arreaga [facility], [address] [place] [address] 10/15/2013 08:27:29 10/18/2013 10:38:45 Shoulder pain [id number] Physical Therapy, [facility] [address] [place] [address] 10/19/2013 08:59:04 10/20/2013 09:14:50 Shoulder pain [id number] Dominique Arreaga [facility], [facility] [place] [address] 10/22/2013 08:57:27 10/25/2013 08:27:37 Shoulder pain [id number] Dominique Arreaga [facility], [address] [place] [address] 10/26/2013 08:57:04 10/27/2013 09:42:56 Shoulder pain [id number] Dominique Arreaga [facility], [address] [place] [address] 10/29/2013 09:22:07 11/01/2013 08:19:22 Shoulder pain [id number] Dominique Arreaga [facility], [address] [place] [address] 11/03/2013 07:26:47 11/04/2013 09:33:43 Shoulder pain [id number] Dominique Arreaga [facility], [address] [place] [address] 11/05/2013 08:55:50 11/08/2013 14:15:37 Shoulder pain [id number] Isaías Miller i, PT Physical Therapy, [address] [place] [address] 11/09/2013 08:58:21 11/11/2013 08:42:27 Shoulder pain [id number] Physical Therapy, [address] [place] [address] 11/12/2013 09:00:19 11/15/2013 09:36:15 Shoulder pain [id number] Dominique Arreaga [facility], [address] [place] [address] 11/16/2013 08:56:15 11/17/2013 09:00:59 Shoulder pain [id number] Dominique Arreaga [facility], [facility] [place] [address] 11/19/2013 08:59:58 11/22/2013 09:23:39 Shoulder pain [id number] Dominique Arreaga [facility], [address] [place] [address] 11/23/2013 09:03:52 11/24/2013 09:13:27 Shoulder pain [id number] Dominique Arreaga [facility], [facility] [place] [address] 11/26/2013 08:52:28 11/29/2013 08:35:29 Shoulder pain [id number] Dominique Arreaga [facility], [facility] [place] [address] 12/03/2013 13:22:50 12/06/2013 09:41:14 Shoulder pain [id number] Dominique Arreaga [facility], [facility] [place] [address] 12/09/2013 15:55:16 12/10/2013 10:20:24 Shoulder pain [id number] Dominique Arreaga [facility], [address] [place] [address] 12/14/2013 09:29:35 12/15/2013 09:37:02 Shoulder pain [id number] Dominique Arreaga [facility], [address] [place] [address] 12/17/2013 09:35:16 12/20/2013 10:23:25 Shoulder pain [id number] Dominique Arreaga [facility], [address] [place] [address] 12/28/2013 09:28:11 12/29/2013 09:50:57 Shoulder pain [id number] Dominique Arreaga [facility], [address] [place] [address] 01/04/2014 11:02:09 01/05/2014 08:44:41 Shoulder pain [id number] Dominique Arreaga [facility], [address] [place] [address] 01/11/2014 09:31:29 01/12/2014 09:32:23 Shoulder pain [id number] Dominique Arreaga [facility], [address] [place] [address] 01/27/2014 14:01:56 01/28/2014 08:22:32 Shoulder pain [id number] [facility], [address] [place] [address] 01/16/2015 13:16:13 01/16/2015 15:47:06 [id number] Isaías Miller i, PT Physical Therapy, [address] [place] [address] 10/10/2015 10:23:14 10/11/2015 11:50:13 Knee pain [id number] M25.138 [id number] Isaías Miller i, PT Physical Therapy, [address] [place] [address] 10/17/2015 14:26:13 10/18/2015 13:46:53 Knee pain [id number] M25.085 [id number] Isaías Miller i, PT Physical Therapy, [address] [place] [address] 05/28/2016 07:57:38 05/28/2016 13:31:54 Abnormal gait due to muscle weakness [id number] M62.81 Knee pain [id number] M25.5 62 [id number] Isaías Miller i, PT Physical Therapy, [address] [place] [address] 05/31/2016 08:25:29 05/31/2016 09:10:00 Knee pain [id number] M25.562 Abnormal g ait due to muscle weakness [id number] M62.81 [id number] Isaías Miller i, PT Physical Therapy, [address] [place] [address] 06/04/2016 08:54:29 06/04/2016 15:11:46 Knee pain [id number] M25.562 Abnormal g ait due to muscle weakness [id number] M62.81 [id number] Isaías Miller i, PT Physical Therapy, [address] [place] [address] 06/07/2016 09:28:36 06/07/2016 17:13:59 Knee pain [id number] M25.562 Abnormal g ait due to muscle weakness [id number] M62.81 [id number] Isaías Miller i, PT Physical Therapy, [address] [address] 06/18/2016 08:27:28 06/19/2016 09:32:40 Knee pain [id number] M25.562 Abnormal g ait due to muscle weakness [id number] M62.81 Health Concerns Section Related Observation LastModified by Organization Detai ls LastModified Time None Recorded Concern Status LastModified by Organization Details LastModified Time None Recorded Advance Directives Directive None Recorded Payers Encounter Date Sequence Insurance Name Policy Number Policy Sawyer Covered Member ID Sawyer Member ID Guarantor Name 05/28/2016 1 [place] [facility] Alex Ayon [id number] Alex Ayon 05/28/2016 2 UNICARE - EXTENSION PLAN (INDEMNITY) [id number] Cristal [employer] [place] [id number] Alex Ayon 05/31/2016 1 [place] [facility] Alex Ayon [id number] Alex Ayon 05/31/2016 2 [employer] - EXTENSION PLAN (INDEMNITY) [id number] Cristal Z Spring [id number] Alex Ayon 06/04/2016 1 [place] [facility] Alex Ayon [id number] Alex Ayon 06/04/2016 2 [employer] - EXTENSION PLAN (INDEMNITY) [id number] Cristal Z Spring [id number] Alex Ayon 06/07/2016 1 [place] [facility] Alex Ayon [id number] Alex Ayon 06/07/2016 2 [employer] - EXTENSION PLAN (INDEMNITY) [id number] Cristal Z Spring [id number] Alex Ayon 06/18/2016 1 [place] [facility] Alex Ayon [id number] Alex Ayon 06/18/2016 2 [employer] - EXTENSION PLAN (INDEMNITY) [id number] Cristal Z Spring [id number] Alex Ayon Notes Date Note Type Note Provider Name and Address Organization Details Recorded Time 05/28/2016 text/html Physical Therapy History of Present IllnessReported bypatient.History:Chi ef complaint: (SP left TKR); Duration: (3 weeks) Aggravating Factors:walking; stairs Easing Factors:resting position Sleep status:Difficulty sleeping due to pain: no Prior history:Similar problems in the past: yes; episodic Prior Studies:x ray Priot treatment:physical therapy; surgery Associated history:recent hospitalization;curre ntly taking a blood thinner; no prior PT for other problems in the past year; no allergy to latex Falling:no fall in the past year Work status:retired Recreational status:stopped due to pain Associated Symptoms:excessive fatigue;dizziness or lightheadedness;weigh t lossor weight gain;numbness or tingling Isaías Mosley, PT [address] [place], [address], [facility] 05/28/2016 12:57:45 05/31/2016 text/html the left knee is swollen and is painful after being on it a great deal yesterday, Isaías Mosley, PT [address] [place], [address], [facility] 05/31/2016 09:01:50 06/04/2016 text/html the knee is stif f with pain today, he is just 4 weeks post Isaías Mosley, PT [address] [place], [address], [facility] 06/04/2016 14:55:05 06/07/2016 text/html no pain is repor genaro , he is having difficulty coming down stairs with weakness and pain Isaías Mosley, PT [address] [place], [address], [facility] 06/07/2016 10:04:36 06/18/2016 text/html Jhoan pain is controlled with occasional use of OTC analgesics, he is walking community distances and stairs independently Isaías Mosley, PT [address] [place], [address], [facility] 06/19/2016 06:54:07
--- NOTE | 2024-10-13 11:53 | MHC.OFFVIS ---
Intake Visit Reasons: 6M PVR/Med Review(Toviaz) Intake Note: Patient is present for 6M PVR/MED REVIEW Urology Medication:TOVIAZ Antibiotic Allergy:NONE Blood Thinner:NONE Todays PVR:0ML'S Licensed Practical Nurse Instructor Required: No Allergies No Known Allergies Allergy (Verified 10/13/24 11:54) HPI Comments Details: Alex Ayon is very pleasant male. He is a patient of Dr Manrique. He is seen for the following urologic conditions - lower urinary tract symptoms Six-month follow-up Generally happy with Toviaz Less urinary urgency crisis Does have to urinate twice at night Has been on Toviaz for bladder instability Did not tolerate alpha blockers Current PVR 0 Lower Urinary Tract Symptoms: Primarily irritative symptoms Prior medications - Failed oxybutynin secondary to dry mouth and constipation, did not tolerate terazosin secondary to dizziness, Myrbetriq had minimal difference, solifenacin lost effect Current visit is for predominate imitative symptoms. Current treatment includes no medications Prostate Symptom Score 11/24 , Mild (0-8), Bother 3. - PSA 05/26 2.5 Symptoms include 11/24 , incomplete emptying, urgency, weak stream, and are progressing 03/24 , incomplete emptying, weak stream, and are improving. Results from testing include cystoscopy no abnormality seen 08/24 NAD renal/bladder us Yes date 03/16/2020 PVR 10 prostate size 40g Prostate volume 30-50gm. Testing at next visit will include bladder scan. Treatment plan - 2 month follow-up cystoscopy [facility] Medical History Cerebral aneurysm without rupture Generalized anxiety disorder Alcohol use disorder in remission Bladder outlet obstruction Incomplete emptying of bladder Weak urinary stream Urinary urgency Review of Systems Const Denies chills and Denies fever(s) Card Reports no additional complaints and Denies syncope Resp Denies cough GI Denies abdominal pain and Denies heartburn Reports as per HPI and Denies change in libido Neuro Denies syncope Psych Denies change in libido Endo Denies change in libido Physical Exam Const General: cooperative, healthy appearing, comfortable and no acute distress Orientation/consciousness: patient oriented x3 HEENT Face and sinus: Yes normal facial exam Mouth: moist mucous membranes Neck Neck: Yes normal visual inspection, Yes full ROM and Yes trachea midline Chest Chest palpation & inspection: normal inspection of the chest Resp Effort & Inspection: normal respiratory effort, able to speak in complete sentences and no respiratory distress GI Inspection: Yes normal to inspection Back/Spine/Pelvis Cervical Spine: normal cervical lordosis Thoracic/Lumbar Spine: thoracic and lumbar spine normal to inspection Skin General skin exam: no rashes or lesions noted Neuro General: patient oriented x3, gait normal, tone normal and moves all extremities Extrem General: Yes normal to inspection and Yes capillary refill normal Office Procedures Post Void Residual Post Residual Void Post Void Residual (PVR): 0 20390-Yujn Void Residual by ultrasound Results AMB Urinalysis, Automated UA Leukoctes 0 Elizabeth/uL Last Edit by JACQUIE Foss on 10/13/24 12:06 UA Nitrite Negative Last Edit by JACQUIE Foss on 10/13/24 12:06 UA Urobilinogen 0.2 mg/dL Last Edit by JACQUIE Foss on 10/13/24 12:06 UA Protein 30 mg/dL Last Edit by JACQUIE Foss on 10/13/24 12:06 UA pH 6.0 Last Edit by Sherman Byrd CCM on 10/13/24 12:06 UA Blood 0 Nacho/uL Last Edit by JACQUIE Foss on 10/13/24 12:06 UA Specific [place] 1.020 Last Edit by JACQUIE Foss on 10/13/24 12:06 UA Ketone Negative Last Edit by JACQUIE Foss on 10/13/24 12:06 UA Bilirubin 0 mg/dL Last Edit by Sherman Byrd CCM on 10/13/24 12:06 UA Glucose 0 mg/dL Last Edit by Sherman Byrd CCM on 10/13/24 12:06 Results Reviewed Results Reviewed: Laboratory Last Values Urine pH (Auto) 6.0 10/13/24 12:06 Specific [place] (Auto) 1.020 10/13/24 12:06 Urine Protein (Auto) 30 mg/dL 10/13/24 12:06 Glucose (UA)(Auto) 0 mg/dL 10/13/24 12:06 Urine Ketones (Auto) Negative 10/13/24 12:06 Urine Blood (Auto) 0 Nacho/uL 10/13/24 12:06 Urine Nitrite (Auto) Negative 10/13/24 12:06 Urine Bilirubin (Auto) 0 mg/dL 10/13/24 12:06 Urine Urobilinogen (Auto) 0.2 mg/dL 10/13/24 12:06 Leukocyte Esterase (Auto) 0 Elizabeth/uL 10/13/24 12:06 Assessment & Plan Assessment & Plan (1) Overactive bladder: Code(s): N32.81 - Overactive bladder Category: Medical (2) BPH w urinary obs/LUTS: Code(s): N40.1 - Benign prostatic hyperplasia with lower urinary tract symptoms; N13.8 - Other obstructive and reflux uropathy Category: Medical Plan Continue with Toviaz Twelve month follow-up Orders: Orders AMB Urinalysis Automated Today Z13.9 - Encounter for screening, unspecified Medications: Refilled fesoterodine ER (Toviaz) 8 mg PO DAILY 90 days 90 tabs 3RF N32.81 - Overactive bladder, N39.41 - Urge incontinence Patient Instructions: Imaging studies, laboratory and physical exam results were discussed and reviewed in detail. No major barriers to patient understanding were identified. An opportunity to ask questions regarding the treatment plan was provided. All questions were answered. The patient expressed understanding and agreement with the above treatment plan. The patient is aware they should contact our office by phone for worsening of their current condition or the appearance of new urologic symptoms. Compliance is encouraged with any medications and followup testing that is ordered. It is a privilege to participate in the urologic care of your patient. If you have any questions or concerns regarding treatment for the above conditions, or other urologic issues, please do not hesitate to contact me. The office telephone contact is [phone]. This note is constructed using voice recognition software. While every effort has been made to ensure accuracy manufacturing engineering professor errors may have been included. Yours sincerely, Dr Herbert Kee MD, [facility] - Urology Providers of Expert, Compassionate Care for the Genitourinary System Coding Level of Care Code Est Pt Level 3 (95220) Diagnoses Overactive bladder N32.81 BPH w urinary obs/LUTS N40.1; N13.8 CPT Codes Post Residual Void - PVR CPT Code: 79012-Wmht Void Residual by ultrasound ([id number])
== END 2024-10-13 12:14 | disposition home or self-care (01) ==
PROVIDERS: PCP Family Medicine; Visit Provider Urology
DX: N32.81 Overactive bladder (principal); N40.1 Benign prostatic hyperplasia with lower urinary tract symptoms; N13.8 Other obstructive and reflux uropathy; Z13.9 Encounter for screening, unspecified
CPT/HCPCS: 99213

== ENCOUNTER → 2024-10-13 11:38 | Outpatient (BNVA) | payer MEDICARE, OTHER, SELFPAY | PROVIDERS: PCP Family Medicine; Visit Provider Urology | DX: N40.1 Benign prostatic hyperplasia with lower urinary tract symptoms (principal); N32.81 Overactive bladder; N13.8 Other obstructive and reflux uropathy | CPT/HCPCS: 51798; 81003; 99212 ==

== ENCOUNTER 2024-11-03 10:47 | Outpatient (AMB) | payer MEDICARE, OTHER, SELFPAY ==
--- NOTE | 2024-11-03 11:01 | MHC.OFFVISPS ---
Intake Intake Visit Reasons: depression Allergies No Known Allergies Allergy (Verified 10/13/24 11:54) Medication List - Last Reconciled 11/03/24 by Yazan Antony MD fesoterodine ER (Toviaz) 8 mg PO DAILY 90 days indomethacin 50 mg PO BID losartan 50 mg PO DAILY venlafaxine ER 75 mg PO DAILY venlafaxine ER 37.5 mg PO DAILY HPI- Psychiatric Chief Complaint: depression HPI Narrative: Patient seen psychiatric follow-up. The patient's mood is quite depressed and he has been cycling down since August. He has not been using light box. He has been on venlafaxine 112.5 mg L methyl folate 7.5 mg. He has had a lower stress tolerance and despite a generally stable life going to the [facility] proximally half the time half time in [facility] living with his has connections with his children and grandchildren but when depressed tends to feel much more disconnected. Has been more worried regarding the aging process. He has intermittently thought he would be better off but denies actual plan or intent. Times psychologically the patient feels alone disconnected tends to have interpersonal sensitivity. Lower energy and motivation and his mood has been causing some difficulty with his who is approaching her 82th birthday Past Psychiatric History: hx recurrent depression anxiety alcohol abuse in past Mental Status Exam Mental Status Exam Narrative: Sad and anxious looking in appearance Patient Appearance: Well Grooomed Patient Orientation: Person, Place, Time and Situation Level of Consciousness: Awake and Appropriate Patient Behavior: Appropriate and Cooperative Mood Description: Depressed and Blunted Affect Description: Appropriate and Constricted Patient Cognition Impaired: No Ability to Follow Directions: Good Speech Pattern: Clear Memory Description: Intact Hallucinations: None Delusions: Not Present Thought Process: Intact and Goal Oriented Thought Content: positive for Goal Oriented, positive for Preoccupation, positive for Suicidal Ideation (no active thoughts and would not abandoned family) and negative for Homicidal Ideation Depressive Symptoms: Increased Anxiety, Increased Irritability, Difficulty Sleeping, Changes in Appetite, Isolating-Friends/Family, Increased Fatigue, Thoughts of /Suicide, Loss of Energy and Difficulty Concentrating Judgement: Fair Assessment and Plan Assessment & Plan (1) Major depressive disorder, recurrent severe without psychotic features: Status: Acute Code(s): F33.2 - Major depressive disorder, recurrent severe without psychotic features (2) Generalized anxiety disorder: Status: Acute Code(s): F41.1 - Generalized anxiety disorder (3) Alcohol use disorder in remission: Status: Acute Code(s): F10.91 - Alcohol use, unspecified, in remission Plan Strongly encouraged light box for 1/2 hour in the morning patient appears to have significant seasonal depressive component we have discussed this previously. Recommended daily mild exercise including walking as help with mood. Given emergency number for feeling actively suicidal and to come to the emergency room patient was agreeable and states he has no active plans of would not harm himself. The patient's Effexor will be increased to 150 mg augmentation with light box increase L methyl folate 15 mg consider Abilify risks/Rexulti. Inpatient treatment if unable to maintain safety. Discussed option of partial hospital. Would benefit from going back to psychotherapy follow-up 2-3 weeks patient knows how to reach this engineering technical writer if needed Counseling and coordination of Care Pt. Self Management counseling: Exercise, Maintenance-social rhythm and Behavior activation Medication management counseling: Effectiveness, Side effects and Dosing range Diagnosis and Prognosis Counseling: Impact of diagnosis on life functions, Problematic behaviors secondary to diagnosis and Adequacy of current interventions Details: I spent [40] minutes reviewing the record, seeing the patient and documenting in the medical record. Counseling provided to the patient/caregiver as outlined below. Addressed patient/caregiver concerns regarding current medication regime including effective adherence. Addressed patient/caregiver concerns regarding diagnosis and prognosis including accuracy of diagnosis, prognosis over time, impact of diagnosis. Addressed patient/caregiver concerns regarding impact of recent stressors. 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
--- OUTSIDE RECORDS SUMMARY | 2024-11-03 12:53 | XMS_ITS | Clinical Summary ---
Author Organization [facility] Facility Address [address] [place] [address] Care Team Providers Care Research Physician Name Role Phone Cameron Manrique DO Primary Care Provider [phone] Medications losartan (COZAAR) 50 MG tablet TAKE 1 TABLET BY MOUTH EVERY DAY 90 tablet 5 10/10/2023 Active Family History Medical History Relation Comments Cancer Father prostate Gout Father Heart disease Father Hypertension Father Hypertension Mother Relation Status Comments Father Mother Social History Tobacco Use Types Packs/Day Years Used Date Smoking Tobacco: Never Sex and Gender Information Value Date Recorded Sex Assigned at Not on file Legal Sex Male 4:55 PM EST Gender Identity Not on file Sexual Orientation Not on file Last Filed Vital Signs Vital Sign Reading Time Taken Comments Blood Pressure 158/96 06/29/2019 12:00 PM EDT Pulse 84 06/29/2019 12:00 PM EDT Temperature - - Respiratory Rate - - Oxygen Saturation 97% 06/29/2019 12:00 PM EDT Inhaled Oxygen Concentration - - Weight 94.3 kg (208 lb) 06/29/2019 12:00 PM EDT Height 172.7 cm (5' 8 ) 06/29/2019 12:00 PM EDT Body Mass Index 31.63 06/29/2019 12:00 PM EDT Plan of Treatment Health Maintenance Due Date Last Done Comments Pneumococcal Vaccine: 65+ Years (1 of 1 - PCV) 2012 Influenza Vaccine (#1) 2024 0, 05/28/2020 Hepatitis B Vaccine Aged Out No longe r eligible based on patient's age to complete this topic Insurance MEDICARE [facility] MEDICARE [facility] Care Teams Research Physician Relationship Specialty Start Date End Date Cameron Manrique DO [address] [place] [address] [address] [place] [id number] [facility] - General 10/16/20
--- OUTSIDE RECORDS SUMMARY | 2024-11-03 12:53 | XMS_ITS | Encounter Summary ---
Author Organization [facility] Address [address] [place] [address] Phone Care Team Providers Care Exhaust And Muffler Repairer Name Role Phone Cameron Manrique DO Primary Care Provider [phone] Reason for Visit * Reason Comments Med Refill Encounter Details Date Type Department Care Team (Late st Contact Info) Description 09/15/2021 Refill [facility] [address] [place] [address] Inocencio Bach MD [address] [facility] [address] [place] [address] Social History Tobacco Use Types Packs/Day Years Used Date Smoking Tobacco: Never Sex and Gender Information Value Date Recorded Sex Assigned at Not on file Legal Sex Male 4:55 PM EST Gender Identity Not on file Sexual Orientation Not on file documented as of this encounter Miscellaneous Notes * Telephone Encounter - Inocencio Bach MD - 09/15/2021 10:41 AM EST Needs f/u in 5-6 weeks with me 1. tell them I sent rx but no refils 2. They must see me or have a telehealth visit with me before I can renew it again 3. when u call them be sure to make the f/u appt at the same time u inform them th rx was sent by me documented in this encounter Plan of Treatment Not on file documented as of this encounter Visit Diagnoses Not on filedocumented in this encounter Care Teams Exhaust And Muffler Repairer Relationship Specialty Start Date End Date Cameron Manrique DO [address] [place] [address], [facility] [address] [place] [address] PCP - General 10/16/20 documented as of this encounter
--- OUTSIDE RECORDS SUMMARY | 2024-11-03 12:53 | XMS_ITS | Data Portability ---
Author Organization MD - .[employer], [employer] [place] Address [address] [place] [id number] Assessment No assessment recorded. Plan of Treatment [...] By Organization Details Last Modified Time 11/12/2022 [id number] A healthy lifestyle: care instructions [email or web address] Not available 11/12/2022 19:36:07 Thank you for visiting [employer]. There are two ways to view your lab results: : ? 1. ? ? ? The [employer] serena is available to all patients 18 and older in the Serena Store and Google Play. First-time serena users will need to create an account; please note you? l l need to select a login and password for the serena versus just using your patient portal login credentials. Your lab results will be posted to the [employer] serena as soon as they? r e available. ? 2. ? ? ? Via email , as soon as lab results are available. If you don? t receive an email within the estimated time frame, give our Aftercare team a call at [phone]. [email or web address] Not available 11/12/2022 16:07:45 Reason for Referral None Reported. Medical Equipment None Reported. Vitals Date Recorded Body height Body mass index (BMI) Body weight Oxygen saturation Oxygen saturation in Arterial blood by Pulse oximetry Respiratory rate Body temperature Heart rate Systolic blood pressure Diastolic blood pressure Provider Name and Address Organization Details Last Updated DateTime 3 172.72 cm 35 kg/m2 582690. 25 g 98 % 98 % 16 /min 98 [degF] 70 /min 107 mm[Hg] 80 mm[Hg] Amrik Moses MD - .[facility] 16:14:22 Social History Question Answer Notes LastModified [...] SNOMED-CT Code Diagnosis ICD10 Code Diagnosis Note [id number] [facility] [address] [place] [address] 11/12/2022 15:50:29 11/12/2022 16:31:10 Removal of suture [id number] Z48.02 Pt had dissolveab le sutures which had already dissolved. Health Concerns Section Related Observation LastModified by Organization Detai ls LastModified Time None Recorded Concern Status LastModified by Organization Details LastModified Time None Recorded Advance Directives Directive None Recorded Payers Encounter Date Sequence Insurance Name Policy Number Policy Sawyer Covered Member ID Sawyer Member ID Guarantor Name 11/12/2022 2 [facility] [id number] [facility] [id number] Alex Ayon 11/12/2022 1 MEDICARE-MD (MEDICARE) Alex Ayon [id number] Alex Ayon Notes Date Note Type [...] had sutures placed at an ER in [place] 10 days ago for a carpal tunnel surgery. Pt cannot recall how many sutures were placed. Adelfo Lopez MD [address] [place] [address],[address], [place], [address], [facility] - .[facility] 11/12/2022 18:25:11
== END 2024-11-03 11:34 | disposition home or self-care (01) ==
LOC: HO.HOP 10:47
PROVIDERS: PCP Family Medicine; Visit Provider Psychiatry & Neurology Psychiatry
DX: F33.2 Major depressive disorder, recurrent severe without psychotic features (principal); F41.1 Generalized anxiety disorder; F10.91 Alcohol use, unspecified, in remission
CPT/HCPCS: 90833; 99213

== ENCOUNTER → 2024-11-03 10:47 | Outpatient (BNVA) | payer MEDICARE, OTHER, SELFPAY | PROVIDERS: PCP Family Medicine; Visit Provider Psychiatry & Neurology Psychiatry | DX: F33.2 Major depressive disorder, recurrent severe without psychotic features (principal); F41.1 Generalized anxiety disorder; F10.91 Alcohol use, unspecified, in remission | CPT/HCPCS: 99212 ==

== ENCOUNTER 2024-11-24 10:34 | Outpatient (AMB) | payer MEDICARE, OTHER, SELFPAY ==
--- NOTE | 2024-11-24 11:02 | A.OFFPSYCH_ITS ---
Intake Intake Visit Reasons: depression Allergies No Known Allergies Allergy (Verified 10/13/24 11:54) HPI- Psychiatric Chief Complaint: depression HPI Narrative: Patient seen psychiatric follow-up Effexor 150 mg mood improved denies any current active self-harm. No complaints of side effects Effexor 150 mg. Have encouraged increase socialization mood more stable remains somewhat melancholy better able to function motivated enjoy things denies drinking remains active in a limited socialization Past Psychiatric History: hx recurrent depression anxiety alcohol abuse in past Mental Status Exam Mental Status Exam Narrative: Sad and anxious looking in appearance Patient Appearance: Well Grooomed Patient Orientation: Person, Place, Time and Situation Level of Consciousness: Awake and Appropriate Patient Behavior: Appropriate and Cooperative Mood Description: Depressed and Blunted Affect Description: Appropriate and Constricted Patient Cognition Impaired: No Ability to Follow Directions: Good Speech Pattern: Clear Memory Description: Intact Hallucinations: None Delusions: Not Present Thought Process: Intact and Goal Oriented Thought Content: positive for Goal Oriented and positive for Preoccupation Depressive Symptoms: Increased Irritability, Changes in Appetite and Isolating- Friends/Family Judgement: Fair Judgement and Insight: Improving perspective Assessment and Plan Assessment & Plan (1) Generalized anxiety disorder: Status: Acute Code(s): F41.1 - Generalized anxiety disorder (2) Major depressive disorder, recurrent severe without psychotic features: Status: Acute Code(s): F33.2 - Major depressive disorder, recurrent severe without psychotic features (3) Alcohol use disorder in remission: Status: Acute Code(s): F10.91 - Alcohol use, unspecified, in remission Plan Patient is feeling more like himself. Had been feeling quite depressed and ho peless. Feeling better with increased Effexor had also been feeling quite criticized by his who is having her 82th birthday and triggered old feelings of feeling unappreciated an inadequate patient feeling better discussed ways to maintain mood decrease catastrophic thinking urged reconsideration psychotherapy dealing with cognitive and interpersonal issues related to depression Medications: New venlafaxine ER 150 mg PO DAILY 90 caps 1RF Discontinued venlafaxine ER Discontinued Reason: Change Referral Type 75 mg PO DAILY 90 caps 1RF venlafaxine ER Discontinued Reason: Doctor's Order 37.5 mg PO DAILY 90 caps 1RF Counseling and coordination of Care Details-Self Mgmt counseling: Issues related to safety maintaining mood addressing cognitive distortions Details-Diagnosis/Prognosis counseling: Consider PHP consider Abilify for augmentation Details: I spent [38] minutes reviewing the record, seeing the patient and documenting in the medical record. Counseling provided to the patient/caregiver as outlined below. Addressed patient/caregiver concerns regarding current medication regime including effective adherence. Addressed patient/caregiver concerns regarding diagnosis and prognosis including accuracy of diagnosis, prognosis over time, impact of diagnosis. Addressed patient/caregiver concerns regarding impact of recent stressors. 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
--- OUTSIDE RECORDS SUMMARY | 2024-11-24 11:12 | XMS_ITS | Encounter Summary ---
Author Organization [facility] Address [address] [place] [address] Phone Care Team Providers Care Hydroelectric Operator Name Role Phone Cameron Manrique DO Primary Care Provider [phone] Reason for Visit * Reason Comments Med Refill Encounter Details Date Type Department Care Team (Late st Contact Info) Description 09/15/2021 Refill [facility] [address] [place] [address] Inocencio Bach MD [address] [facility] [address] [place] [address] Social History Tobacco Use Types [...] on filedocumented in this encounter Care Teams Hydroelectric Operator Relationship Specialty Start Date End Date Cameron Manrique DO [address] [place] [address], [facility] [address] [place] [address] PCP - General 10/16/20 documented as of this encounter
--- OUTSIDE RECORDS SUMMARY | 2024-11-24 11:12 | XMS_ITS | Clinical Summary ---
Author Organization [facility] Facility Address [address] [place] [address] Care Team Providers Care Agriculture Research Director Name Role Phone Cameron Manrique DO Primary Care Provider Medications losartan (COZAAR) 50 MG tablet TAKE [...] age to complete this topic Insurance [facility]ICARE [facility] MEDICARE [facility] Care Teams Agriculture Research Director Relationship Specialty Start Date End Date Cameron Manrique DO [address] [place] [address] [address] [place] [id number] [facility] - General 10/16/20
--- OUTSIDE RECORDS SUMMARY | 2024-11-24 11:12 | XMS_ITS | Data Portability ---
Author Organization [place] - [facility] Address [address] [place] [address] Care Team Providers Care Curer Acid Drum Name Role Phone DEB BLAND Referring Provider Assessment Encounter Date Assessment Date Assessment LastModified [...] By Organization Details Last Modified Time 12/20/2016 [id number] Device provided has good fit and function. [...] SNOMED-CT Code Diagnosis ICD10 Code Diagnosis Note [id number] Liam Pires [facility] [address] [place] [address] 12/20/2016 16:21:56 12/25/2016 07:48:48 Bilateral carpal tunnel syndrome 8705535545 3388825 G56.03 Subluxatio n of patellofemoral joint 770733362 S83.012A Health Concerns Section Related Observation LastModified by Organization Detai ls LastModified Time None Recorded Concern Status LastModified by Organization Details LastModified Time None Recorded Advance Directives Directive None Recorded Payers Encounter Date Sequence Insurance Name Policy Number Policy Sawyer Covered Member ID Sawyer Member ID Guarantor Name 12/20/2016 1 [facility] INDEMNITY PLAN - [facility] [id number] [facility] [id number] Alex Ayon Notes Date Note Type Note Provider Name and Address Organization Details Recorded Time 12/20/2016 text/html BI HPIReported bypatient.patient is:Out Patient Pain?location(left knee);level 3/10 Numbness?location( hands, L & R)Notes:Patient fit with size large, hinged, glasgow brace to left knee. Also fit with bilateral WHOS to left and right hands. ALLYSON Kline BRACE 12/20/2016 17:05:10
--- OUTSIDE RECORDS SUMMARY | 2024-11-24 11:12 | XMS_ITS | Data Portability ---
Author Organization [place] - [facility] [place] Address [address] [place] [id number] Assessment No assessment recorded. Plan of Treatment [...] By Organization Details Last Modified Time 11/12/2022 [id number] A healthy lifestyle: care instructions [email or web address] Not available 11/12/2022 19:36:07 Thank you for visiting [facility]. There are two ways to view your lab results: : ? 1. ? ? ? The [employer] serena is available to all patients 18 and older in the Serena Store and [employer] Play. First-time serena users will need to create an account; please note you? l l need to select a login and password for the serena versus just using your patient portal login credentials. Your lab results will be posted to the [employer] serena as soon as they? r e available. ? 2. ? ? ? Via email , as soon as lab results are available. If you don? t receive an email within the estimated time frame, give our Aftercare team a call at [phone]. [email or web address] Not available 11/12/2022 16:07:45 Reason for Referral None Reported. Medical Equipment None Reported. Vitals Date Recorded Body height Body mass index (BMI) Body weight Oxygen saturation Oxygen saturation in Arterial blood by Pulse oximetry Respiratory rate Body temperature Heart rate Systolic blood pressure Diastolic blood pressure Provider Name and Address Organization Details Last Updated DateTime 3 172.72 cm 35 kg/m2 971296. 25 g 98 % 98 % 16 /min 98 [degF] 70 /min 107 mm[Hg] 80 mm[Hg] Amrik Moses [place] - [facility] 16:14:22 Social History Question Answer [...] SNOMED-CT Code Diagnosis ICD10 Code Diagnosis Note [id number] [facility] [address] [place] [address] 11/12/2022 15:50:29 11/12/2022 16:31:10 Removal of suture [id number] Z48.02 Pt had dissolveab le sutures which had already dissolved. Health Concerns Section Related Observation LastModified by Organization Detai ls LastModified Time None Recorded Concern Status LastModified by Organization Details LastModified Time None Recorded Advance Directives Directive None Recorded Payers Encounter Date Sequence Insurance Name Policy Number Policy Sawyer Covered Member ID Sawyer Member ID Guarantor Name 11/12/2022 2 [facility] [id number] [facility] [id number] Alex Ayon 11/12/2022 1 [place] Alex Ayon [id number] Alex Ayon Notes Date Note Type [...] had sutures placed at an ER in [place] 10 days ago for a carpal tunnel surgery. Pt cannot recall how many sutures were placed. Adelfo Lopez MD [address] [place] [address],[address], [place], [address], [facility] - .[facility] 11/12/2022 18:25:11
== END 2024-11-24 16:34 | disposition home or self-care (01) ==
LOC: HO.HOP 10:34
PROVIDERS: PCP Family Medicine; Visit Provider Psychiatry & Neurology Psychiatry
DX: F41.1 Generalized anxiety disorder (principal); F33.2 Major depressive disorder, recurrent severe without psychotic features; F10.91 Alcohol use, unspecified, in remission
CPT/HCPCS: 90833; 99213

== ENCOUNTER → 2024-11-24 10:34 | Outpatient (BNVA) | payer MEDICARE, OTHER, SELFPAY | PROVIDERS: PCP Family Medicine; Visit Provider Psychiatry & Neurology Psychiatry | DX: F41.1 Generalized anxiety disorder (principal); F33.2 Major depressive disorder, recurrent severe without psychotic features; F10.91 Alcohol use, unspecified, in remission; Z71.89 Other specified counseling | CPT/HCPCS: 99212 ==

== ENCOUNTER 2025-01-05 11:03 | Outpatient (AMB) | payer MEDICARE, OTHER, SELFPAY ==
--- NOTE | 2025-01-05 11:10 | MHC.OFFVISPS ---
Intake Intake Visit Reasons: depression Allergies No Known Allergies Allergy (Verified 10/13/24 11:54) HPI- Psychiatric Chief Complaint: depression HPI Narrative: The pt is a 79 yo feeling much better not overly depressed had been drinking heavily in prison initially not presently has been sober 5 yrs. No longer overly depressed may need l shoulder replacement . BP has been good with inc effexor Went to [facility] for his [place] enjoys gardening dog park Pt used light box was very helpful feeling significantly improved from a month ago better perspective attitude and gratitude. Remains sober increase Effexor 150 mg blood pressure reported to be 120/80 Past Psychiatric History: hx recurrent depression anxiety alcohol abuse in past Mental Status Exam Mental Status Exam Narrative: Sad and anxious looking in appearance Patient Appearance: Well Grooomed Patient Orientation: Person, Place, Time and Situation Level of Consciousness: Awake and Appropriate Patient Behavior: Appropriate and Cooperative Mood Description: Calm, Appropriate and Relaxed Affect Description: Appropriate and Relaxed Patient Cognition Impaired: No Ability to Follow Directions: Good Speech Pattern: Clear and Whisper Memory Description: Intact Delusions: Not Present Thought Process: Intact and Goal Oriented Thought Content: positive for Goal Oriented Judgement: Good Judgement and Insight: Improving perspective full affect Assessment and Plan Assessment & Plan (1) Generalized anxiety disorder: Status: Acute Code(s): F41.1 - Generalized anxiety disorder (2) Major depression in full remission: Status: Acute Code(s): F32.5 - Major depressive disorder, single episode, in full remission Plan much more stable engaged with multiple activities tolerating effexor 150 mg seems to be much more stable better attitude remains sober on venlafaxine Medications: Changed From venlafaxine ER 150 mg PO DAILY 90 caps 1RF To venlafaxine ER 150 mg PO DAILY 90 caps 1RF 90 days Counseling and coordination of Care Pt. Self Management counseling: Behavior activation Details: I spent [] minutes reviewing the record, seeing the patient and documenting in the medical record. Counseling provided to the patient/caregiver as outlined below. Addressed patient/caregiver concerns regarding current medication regime including effective adherence. Addressed patient/caregiver concerns regarding diagnosis and prognosis including accuracy of diagnosis, prognosis over time, impact of diagnosis. Addressed patient/caregiver concerns regarding impact of recent stressors. 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
--- OUTSIDE RECORDS SUMMARY | 2025-01-05 13:21 | XMS_ITS | Encounter Summary ---
Author Organization [facility] Address [address] [place] [address] Phone Care Team Providers Care Cork Insulator Helper Name Role Phone Cameron Manrique DO Primary Care Provider [phone] Reason for Visit * Reason Comments Med Refill Encounter Details Date Type Department Care Team (Late st Contact Info) Description 09/15/2021 Refill [facility] [address] [place] [address] Inocencio Bach MD [address] [facility] [address] [place] [address] Social History Tobacco Use Types [...] on filedocumented in this encounter Care Teams Cork Insulator Helper Relationship Specialty Start Date End Date Cameron Manrique DO [address] [place] [address], [facility] [address] [place] [address] PCP - General 10/16/20 documented as of this encounter
--- OUTSIDE RECORDS SUMMARY | 2025-01-05 13:21 | XMS_ITS | Clinical Summary ---
Author Organization [facility] Address [address] [place] [address] Care Team Prov[address] Care Rd Scientist Name Role Phone Cameron Manrique DO Primary Care Provider [phone] Medications losartan (COZAAR) 50 MG tablet TAKE 1 TABLET BY MOUTH EVERY DAY 90 tablet 5 5 Active losartan (COZAAR) 50 MG tablet TAKE 1 TABLET BY MOUTH EVERY DAY 90 tablet 5 4 12/29/19 25 Discontinued Encounters Date Type Department Care Team Description 12/28/2024 Refill [facility] [address] [place] [id number] Inocencio Bach MD from Last 3 Months Family History Medical History Relation Comments Cancer [...] Last Done Comments Pneumococcal Vaccine: 65+ Years Completed 07/11/2021, 09/22/2018, 05/08/2016, Additional history exists Influenza Vaccine Completed 06/25/2024, , 07/15/2022, Additional history exists Hepatitis B Vaccine Aged Out No longe r eligible based on patient's age to complete this topic Insurance MEDICARE [facility] MEDICARE [facility] Care Teams Rd Scientist Relationship Specialty Start Date End Date Cameron Manrique DO [address] [place] [address], [address] [place] [address] PCP - General 10/16/20
--- OUTSIDE RECORDS SUMMARY | 2025-01-05 13:21 | XMS_ITS | Data Portability ---
Author Organization [place] [facility] [place] [facility] Address [address] [place] [address] Care Team Providers Care Quality Assurance Nurse Name Role Phone DEB BLAND Referring Provider [...] By Organization Details Last Modified Time 12/20/2016 [id number] Device provided has good fit and function. [...] Details Recorded Time 7 BI Procedures completed Liam DÍAZ BRACE 12/20/2016 16:43:18 Imaging Results None recorded. Procedure Notes None recorded. Medical Equipment None Reported. Vitals None Recorded Social History None recorded. Functional Status None recorded. Mental Status None recorded. Family History Nothing Reported. Medical History No medical history recorded. Past Encounters Encounter ID Performer Location Encounter Start Date Encounter Closed Date Diagnosis/Indication Diagnosis SNOMED-CT Code Diagnosis ICD10 Code Diagnosis Note [id number] Liam Pires [facility] [address] [place] [address] 12/20/2016 16:21:56 12/25/2016 07:48:48 Bilateral carpal tunnel syndrome [id number] 5592428 G56.03 Subluxatio n of patellofemoral joint 068079610 S83.012A Health Concerns Section Related Observation LastModified by Organization Detai ls LastModified Time None Recorded Concern Status LastModified by Organization Details LastModified Time None Recorded Advance Directives Directive None Recorded Payers Encounter Date Sequence Insurance Name Policy Number Policy Sawyer Covered Member ID Sawyer Member ID Guarantor Name 12/20/2016 1 [facility] INDEMNITY PLAN - [facility] [id number] [facility] [id number] Alex Ayon Notes Date Note Type Note Provider Name and Address Organization Details Recorded Time 12/20/2016 text/html BI HPIReported bypatient.patient is:Out Patient Pain?location(left knee);level 3/10 Numbness?location( hands, L & R)Notes:Patient fit with size large, hinged, glasgow brace to left knee. Also fit with bilateral WHOS to left and right hands. ALLYSON Kline BRACE 12/20/2016 17:05:10
--- OUTSIDE RECORDS SUMMARY | 2025-01-05 13:22 | XMS_ITS | Data Portability ---
Author Organization [facility], [facility] Address [address] [place] [address] Care Team Providers Care Dispatcher Tow Truck Name Role Phone SHANNANISAÍAS ESTRADA Phys. Med. & Rehab Assessment Encounter Date Assessment Date Assessment LastModified by Organization Details LastModified Time 05/28/2016 05/28/2016 71 year old male with findings most consistent following a left TKR, he lacks quad strength and his terminal extensio is limited to -10 Patient has significant functional limitation in their activities of daily living and exercise capacity. Patient Goals:? ? ?to be able to walk on stairs and level ground for community distances, to have fiull knee arom , his pain level is minimal at 2/10 Clinical Goals: 1. Demonstrate symmetric pain free active, passive and resisted motions of the trunk and lower extremities. 2. Demonstrate sufficient muscular endurance to meet functional demands. Skilled physical therapy is medically necessary? ? ? to safely and progressively address impairments and functional limitations as outlined above. Treatment Plan: Patient to return 10 times over 12 weeks. We expect significant change in pain, impairment and function in this time frame. Treatment to Include: Therapeutic exercise and manual therapy [email or web address] Not available 05/28/2016 12:51:22 05/31/2016 05/31/201611/15 ? ? ?2? ? ? 71 year old male with findings most consistent following a left TKR, he lacks quad strength and his terminal extension is limited to 0 degrees after mobilization and stretching started biking and squats, gait training of stairs and therex were provided Patient has significant functional limitation in their activities of daily living and exercise capacity. Patient Goals:? ? ?to be able to walk on stairs and level ground for community distances, to have fiull knee arom , his pain level is minimal at 2/10 Clinical Goals: 1. Demonstrate symmetric pain free active, passive and resisted motions of the trunk and lower extremities. 2. Demonstrate sufficient muscular endurance to meet functional demands. Skilled physical therapy is medically necessary? ? ? to safely and progressively address impairments and [...] of daily living and exercise capacity. Patient Goals:? ? ?to be able to walk on stairs and level ground for community distances, to have fiull knee arom , his pain level is minimal at 2/10 Clinical Goals: 1. Demonstrate symmetric pain free active, passive and resisted motions of the trunk and lower extremities. 2. Demonstrate sufficient muscular endurance to meet functional demands. Skilled physical therapy is medically necessary? ? ? to safely and progressively address impairments and [...] activities of daily living and recreation. Patient Goals:? ? ?to be able to walk on stairs and [...] functional demands. Skilled physical therapy is medically necessary? ? ? to safely and progressively address impairments and functional limitations as outlined above. Treatment Plan: Patient to return 1 2 3 4 1-2 2-3 3-4 times over 4 5 6 7 8 1-2 3-5 4-6 6-8 weeks. We expect significant change in pain, impairment and function in this time frame. Treatment to Include: Therapeutic exercise and manual therapy [email or web address] Not available 06/07/2016 10:04:04 06/18/2016 06/18/201603/15 ? [...] activities of daily living and recreation. Patient Goals:? ? ?to be able to walk on stairs and [...] functional demands. Skilled physical therapy is medically necessary? ? ? to safely and progressively address impairments and [...] By Organization Details Last Modified Time 05/28/2016 [id number] Learning About Being Physically Active Not available 09/21/2016 04:05:49 Mobility Current G8978 {{CH (0%) CI (1-19%) CJ (20-39%)* CK (40-59%) CL (60-79%) CM (80-99%) CN (100%)}} Goal G8979 {{CH (0%)* CI (1-19%) CJ (20-39%) CK (40-59%) CL (60-79%) CM (80-99%) CN (100%)}} Discharge G8980 {{CH (0%) CI (1-19%) CJ (20-39%) CK (40-59%) CL (60-79%) CM (80-99%) CN (100%)}} [email or web address] Not available 05/28/2016 12:52:25 05/31/2016 [id number] Learning About Being Physically Active 17 Not available 09/21/2016 04:06:40 06/04/2016 [id number] Learning About Being Physically Active 17 Not available 09/21/2016 04:06:23 06/07/2016 [id number] Learning About Being Physically Active 17 Not available 09/21/2016 04:06:30 06/18/2016 [id number] Learning About Being Physically Active 17 Not available 09/21/2016 04:06:45 Mobility Current G8978 {{CH (0%) CI (1-19%) CJ (20-39%) CK (40-59%) CL (60-79%) CM (80-99%) CN (100%)}} Goal G8979 {{CH (0%)* CI (1-19%) CJ (20-39%) CK (40-59%) CL (60-79%) CM (80-99%) CN (100%)}} Discharge G8980 {{CH (0%)* CI (1-19%) CJ (20-39%) CK (40-59%) CL (60-79%) CM (80-99%) CN (100%)}} [email or web address] Not available 06/19/2016 06:52:57 Reason for Referral None Reported. 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 Procedures Surgical History Date Name Laterality Status Provider Name and Address Organization Details Recorded Time 06/18/20 16 24413: Therapeutic Exercise completed Isaías Mosley, PT [address] [place], [address], [facility] 06/19/2016 06:50:31 06/07/20 16 77628: Therapeutic Exercise completed Isaías Mosley, PT [address] [place], [address], [facility] 06/07/2016 10:02:17 06/04/20 16 87471: Therapeutic Exercise completed Isaías Mosley, PT [address] [place], [address], [facility] 06/04/2016 14:54:01 05/31/20 16 63505: Therapeutic Exercise completed Isaías Mosley, PT [address] [place], [address], [facility] 05/31/2016 08:59:11 05/28/20 16 87973: PT Evaluation completed Isaías Mosley, PT [address] [place], [address], [facility] 05/28/2016 12:48:39 01/17/20 15 Gudino - Colonoscopy completed Edilson Gudino MD [address] [place], [address], [facility] 01/16/2015 14:52:20 01/28/20 14 Current <strong>Medicat ions</strong> not Documented, Reason not Given (G8428) completed Isaías Mosley, PT [address] [place], [address], [facility] 01/27/2014 14:57:45 01/05/20 14 Current <strong>Medicat ions</strong> not Documented, Reason not Given (G8428) completed Isaías Mosley, PT [address] [place], [address], [facility] 01/05/2014 06:41:14 08/13/20 13 <strong>Pain</s mac> Assessment and Follow-up (G8730) completed Isaías Mosley, PT [address] [place], [address], [facility] 08/13/2013 15:02:34 08/13/20 13 <strong>Falls</ strong> Risk Assessment - No Risk (1101F) completed Isaías Mosley, PT [address] [place], [address], [facility] 08/13/2013 15:02:34 08/13/20 13 <strong>Functio nal</strong> Outcome w/ POC (G8539) completed Isaías Mosley, PT [address] [place], [address], [facility] 08/13/2013 15:02:34 01/02/20 13 Treatment and Advice completed Isaías Mosley, PT [address] [place], [address], [facility] 01/01/2013 10:33:46 12/03/19 05 Lesion removal colonoscopy completed Not Available [facility] 08/22/2011 06:05:52 Imaging Results None recorded. Procedure Notes None recorded. Medical Equipment None Reported. Vitals None Recorded Social History None recorded. Functional Status None recorded. Mental Status None recorded. Family History Nothing Reported. Medical History No medical history recorded. Past Encounters Encounter ID Performer Location Encounter Start Date Encounter Closed Date Diagnosis/Indication Diagnosis SNOMED-CT Code Diagnosis ICD10 Code Diagnosis Note [id number] [facility], [address] [address] 12/03/2004 10:50:44 12/04/2004 09:31:56 [id number] [facility], [address] [address] 10/09/2012 08:50:08 10/12/2012 10:19:33 [id number] Dominique Arreaga Physical [facility], [address] [address] 10/16/2012 08:33:47 10/19/2012 10:40:45 [id number] [facility], [address] [address] 10/23/2012 08:31:28 10/26/2012 10:17:59 [id number] [facility], [facility] [place] [address] 10/30/2012 10:58:37 11/02/2012 10:24:25 [id number] Dominique Whitley [facility], [facility] [place] [address] 12/22/2012 12:30:18 12/23/2012 10:56:06 [id number] [facility], [address] [place] [address] 12/24/2012 08:00:12 12/25/2012 09:26:31 [id number] Dominique Whitley [facility], [facility] [place] [address] 12/29/2012 12:36:46 12/30/2012 09:25:17 [id number] [facility], [address] [place] [address] 01/01/2013 10:05:52 01/05/2013 08:54:24 [id number] [facility], [address] [place] [address] 08/13/2013 09:25:36 08/17/2013 09:52:02 Shoulder pain [id number] Dominique Arreaga [facility], [facility] [place] [address] 08/16/2013 09:29:11 08/18/2013 08:26:30 Shoulder pain [id number] [facility], [address] [place] [address] 08/20/2013 09:25:57 08/23/2013 09:44:34 Shoulder pain [id number] Domin[facility], [address] [place] [address] 08/23/2013 16:34:05 08/24/2013 09:43:23 Shoulder pain [id number] Dominique Arreaga [facility], [facility] [place] [address] 08/27/2013 10:03:38 08/30/2013 11:21:27 Shoulder pain [id number] [facility], [address] [place] [address] 08/30/2013 09:35:03 08/31/2013 09:43:35 Shoulder pain [id number] Dominique Whitley [facility], [facility] [place] [address] 09/08/2013 06:35:41 09/08/2013 09:07:11 Shoulder pain [id number] Dominique Arreaga [facility], [facility] [place] [address] 09/10/2013 08:54:56 09/13/2013 08:19:07 Shoulder pain [id number] Domin[facility]re[facility], [address] [place] [address] 09/14/2013 07:54:52 09/15/2013 10:45:00 Shoulder pain [id number] Dominique [facility]re[facility], [address] [place] [address] 09/17/2013 09:26:42 09/21/2013 10:45:56 Shoulder pain [id number] Domin[facility]re[facility], [address] [place] [address] 09/22/2013 08:03:07 09/23/2013 11:01:04 Shoulder pain [id number] Dominique Whitley [facility], [facility] [place] [address] 09/24/2013 10:32:44 09/27/2013 09:43:13 Shoulder pain [id number] Domin[facility], [address] [place] [address] 10/04/2013 11:29:16 10/05/2013 10:36:59 Shoulder pain [id number] Dominique [facility]reaga [facility], [address] [place] [address] 10/07/2013 10:32:23 10/08/2013 09:52:35 Shoulder pain [id number] Domin[facility], [address] [place] [address] 10/12/2013 08:58:15 10/13/2013 09:24:30 Shoulder pain [id number] Domin[facility]re[facility], [address] [place] [address] 10/15/2013 08:27:29 10/18/2013 10:38:45 Shoulder pain [id number] Physical Therapy, [address] [place] [address] 10/19/2013 08:59:04 10/20/2013 09:14:50 Shoulder pain [id number] Domin[facility]reaga [facility], [address] [place] [address] 10/22/2013 08:57:27 10/25/2013 08:27:37 Shoulder pain [id number] Dominique Arreaga [facility], [address] [place] [address] 10/26/2013 08:57:04 10/27/2013 09:42:56 Shoulder pain [id number] Dominique Arreaga [facility], [address] [place] [address] 10/29/2013 09:22:07 11/01/2013 08:19:22 Shoulder pain [id number] Dominique Arreaga [facility], [address] [place] [address] 11/03/2013 07:26:47 11/04/2013 09:33:43 Shoulder pain [id number] Domin[facility]reaga [facility], [address] [place] [address] 11/05/2013 08:55:50 11/08/2013 14:15:37 Shoulder pain [id number] Isaías Miller i, PT Physical Therapy, [address] [place] [address] 11/09/2013 08:58:21 11/11/2013 08:42:27 Shoulder pain [id number] Physical Therapy, [address] [place] [address] 11/12/2013 09:00:19 11/15/2013 09:36:15 Shoulder pain [id number] Dominique Arreaga [facility], [address] [place] [address] 11/16/2013 08:56:15 11/17/2013 09:00:59 Shoulder pain [id number] Dominique Arreaga [facility], [address] [place] [address] 11/19/2013 08:59:58 11/22/2013 09:23:39 Shoulder pain [id number] Dominique Arreaga [facility], [place] [address] 11/23/2013 09:03:52 11/24/2013 09:13:27 Shoulder pain [id number] Dominique Arreaga [facility], [facility] [place] [address] 11/26/2013 08:52:28 11/29/2013 08:35:29 Shoulder pain [id number] Dominique Arreaga [facility], [facility] [place] [address] 12/03/2013 13:22:50 12/06/2013 09:41:14 Shoulder pain [id number] Dominique Arreaga [facility], [facility] [place] [address] 12/09/2013 15:55:16 12/10/2013 10:20:24 Shoulder pain [id number] Dominique Arreaga [facility], [facility] [place] [address] 12/14/2013 09:29:35 12/15/2013 09:37:02 Shoulder pain [id number] Dominique Arreaga [facility], [facility] [place] [address] 12/17/2013 09:35:16 12/20/2013 10:23:25 Shoulder pain [id number] Dominique Arreaga [facility], [facility] [place] [address] 12/28/2013 09:28:11 12/29/2013 09:50:57 Shoulder pain [id number] Dominique Arreaga [facility], [facility] [place] [address] 01/04/2014 11:02:09 01/05/2014 08:44:41 Shoulder pain [id number] Dominique Arreaga [facility], [facility] [place] [address] 01/11/2014 09:31:29 01/12/2014 09:32:23 Shoulder pain [id number] Dominique Arreaga [facility], [facility] [place] [address] 01/27/2014 14:01:56 01/28/2014 08:22:32 Shoulder pain [id number] [facility], [facility] [place] [address] 01/16/2015 13:16:13 01/16/2015 15:47:06 [id number] Isaías Miller i, PT Physical Therapy, [address] [place] [address] 10/10/2015 10:23:14 10/11/2015 11:50:13 Knee pain [id number] M25.832 [id number] Isaías Miller i, PT Physical Therapy, [address] [place] [address] 10/17/2015 14:26:13 10/18/2015 13:46:53 Knee pain [id number] M25.125 [id number] Isaías Miller i, PT Physical Therapy, [address] [place] [address] 05/28/2016 07:57:38 05/28/2016 13:31:54 Abnormal gait due to muscle weakness [id number] M62.81 Knee pain [id number] M25.5 62 [id number] Isaías Miller i, PT Physical Therapy, [address] [place] [address] 05/31/2016 08:25:29 05/31/2016 09:10:00 Knee pain [id number] M25.562 Abnormal g ait due to muscle weakness [id number] M62.81 [id number] Isaías Miller i, PT Physical Therapy, [address] [place] [address] 06/04/2016 08:54:29 06/04/2016 15:11:46 Knee pain [id number] M25.562 Abnormal g ait due to muscle weakness [id number] M62.81 [id number] Isaías Miller i, PT Physical Therapy, [address] [place] [address] 06/07/2016 09:28:36 06/07/2016 17:13:59 Knee pain [id number] M25.562 Abnormal g ait due to muscle weakness [id number] M62.81 [id number] Isaías Miller i, PT Physical Therapy, [address] [place] [address] 06/18/2016 08:27:28 06/19/2016 09:32:40 Knee pain [id number] M25.562 Abnormal g ait due to muscle weakness [id number] M62.81 Health Concerns Section Related Observation LastModified by Organization Detai ls LastModified Time None Recorded Concern Status LastModified by Organization Details LastModified Time None Recorded Advance Directives Directive None Recorded Payers Encounter Date Sequence Insurance Name Policy Number Policy Sawyer Covered Member ID Sawyer Member ID Guarantor Name 05/28/2016 1 [place] [facility] Alex Ayon [id number] Alex Ayon 05/28/2016 2 UNICARE - EXTENSION PLAN (INDEMNITY) [id number] Cristal Z Spring [id number] Alex Ayon 05/31/2016 1 [place] [facility] Alex Ayon [id number] Alex Ayon 05/31/2016 2 UNICARE - EXTENSION PLAN (INDEMNITY) [id number] Cristal Z Spring [id number] Alex Ayon 06/04/2016 1 [place] [facility] Alex Ayon [id number] Alex Ayon 06/04/2016 2 [employer] - EXTENSION PLAN (INDEMNITY) [id number] Cristal Z Spring [id number] Alex Ayon 06/07/2016 1 [place] [facility] Alex Ayon [id number] Alex Ayon 06/07/2016 2 [employer]IC[employer] - EXTENSION PLAN (INDEMNITY) [id number] Cristal Z Spring [id number] Alex Ayon 06/18/2016 1 [place] [facility] Alex Ayon [id number] Alex Ayon 06/18/2016 2 [employer] - EXTENSION PLAN (INDEMNITY) [id number] Cristal Spring [id number] Alex Ayon Notes Date Note Type Note [...] gain;numbness or tingling Isaías Mosley, PT [address] [place], [address], [facility] 05/28/2016 12:57:45 05/31/2016 text/html the left knee is swollen and is painful after being on it a great deal yesterday, Isaías Mosley, PT [address] [place], [address], [facility] 05/31/2016 09:01:50 06/04/2016 text/html the knee is stif f with pain today, he is just 4 weeks post Isaías Mosley, PT [address] [place], [address], [facility] 06/04/2016 14:55:05 06/07/2016 text/html no pain is repor genaro , he is having difficulty coming down stairs with weakness and pain Isaías Mosley, PT [address] [place], [address], [facility] 06/07/2016 10:04:36 06/18/2016 text/html Jhoan pain is controlled with occasional use of OTC analgesics, he is walking community distances and stairs independently Isaías Mosley, PT [address] [place], [address], [facility] 06/19/2016 06:54:07
== END 2025-01-05 11:34 | disposition home or self-care (01) ==
LOC: HO.HOP 11:03
PROVIDERS: PCP Family Medicine; Visit Provider Psychiatry & Neurology Psychiatry
DX: F41.1 Generalized anxiety disorder (principal); F32.5 Major depressive disorder, single episode, in full remission
CPT/HCPCS: 90833; 99213

== ENCOUNTER → 2025-01-05 11:03 | Outpatient (BNVA) | payer MEDICARE, OTHER, SELFPAY | PROVIDERS: PCP Family Medicine; Visit Provider Psychiatry & Neurology Psychiatry | DX: F41.1 Generalized anxiety disorder (principal); F32.5 Major depressive disorder, single episode, in full remission | CPT/HCPCS: 99212 ==

== ENCOUNTER 2025-03-09 11:02 | Outpatient (AMB) | payer MEDICARE, OTHER, SELFPAY ==
--- NOTE | 2025-03-09 11:52 | MHC.OFFVISPS ---
Intake Intake Visit Reasons: depression Allergies No Known Allergies Allergy (Verified 04/05/25 10:48) Medication List - Last Reconciled 03/09/25 by Yazan Antony MD fesoterodine ER (Toviaz) 8 mg PO DAILY 90 days indomethacin 50 mg PO BID losartan 50 mg PO DAILY venlafaxine ER 150 mg PO DAILY 90 days HPI- Psychiatric Chief Complaint: depression HPI Narrative: Patient feeling significantly better future oriented no SI. Were active engaged with family enjoys gardening active in recovery. Patient remains sober medical issues stable deals with some chronic issues with urinary frequency and incontinence especially on longer trips driving Past Psychiatric History: hx recurrent depression anxiety alcohol abuse in past Mental Status Exam Mental Status Exam Narrative: Sad and anxious looking in appearance Patient Appearance: Well Grooomed Patient Orientation: Person, Place, Time and Situation Level of Consciousness: Awake and Appropriate Patient Behavior: Appropriate and Cooperative Mood Description: Calm, Appropriate and Relaxed Affect Description: Appropriate and Relaxed Patient Cognition Impaired: No Ability to Follow Directions: Good Speech Pattern: Clear Memory Description: Intact Delusions: Not Present Thought Process: Intact and Goal Oriented Thought Content: positive for Goal Oriented Judgement: Good Judgement and Insight: Improving perspective full affect denies ongoing depressive symptoms no SI no psychosis Assessment and Plan Assessment & Plan (1) Generalized anxiety disorder: Status: Acute Code(s): F41.1 - Generalized anxiety disorder (2) Major depression in full remission: Status: Acute Code(s): F32.5 - Major depressive disorder, single episode, in full remission (3) Alcohol use disorder in remission: Status: Acute Code(s): F10.91 - Alcohol use, unspecified, in remission Plan Patient feeling better generally had an episode of depression now improved. Full affect future oriented no self-harming thoughts. Lives between [place] in [facility] has been thinking of retiring fully in next couple of years to a half-way setting with his in [facility] [place]. Remains sober active in recovery more engaged future oriented. Deals with chronic intermittent urinary frequency and occasional dribbling but has learned to manage this. Patient will be seeing his urologist shortly Counseling and coordination of Care Details-Self Mgmt counseling: Issues related to interpersonal issues maintenance of behavioral activation Medication management counseling: Effectiveness, Side effects and Dosing range Details-Diagnosis/Prognosis counseling: Continue venlafaxine Details: I spent [35] minutes reviewing the record, seeing the patient and documenting in the medical record. Counseling provided to the patient/caregiver as outlined below. Addressed patient/caregiver concerns regarding current medication regime including effective adherence. Addressed patient/caregiver concerns regarding diagnosis and prognosis including accuracy of diagnosis, prognosis over time, impact of diagnosis. Addressed patient/caregiver concerns regarding impact of recent stressors. 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
--- OUTSIDE RECORDS SUMMARY | 2025-03-09 11:57 | XMS_ITS | Data Portability ---
Author Organization [place] - [facility], [facility] - INPATIENT Address [address] [place] [address] Assessment Encounter Date Assessment Date Assessment LastModified by Organization Details LastModified Time 02/14/2025 02/14/2025 Diagnostic Imaging: Independent review of grashey, axillary, and humerus views of left shoulder consistent with DJD and superior migration of the humeral head, and hardware from previous rotator cuff repair. Right shoulder consistent with DJD. Assessment/ Plan: Alex is a 79-year-old male presenting today with bilateral shoulder osteoarthritis and likely right rotator cuff arthropathy. Educated patient on x-ray findings and explained origin of pathology. Discussed treatment options of steroid injections vs surgery. Though he is a surgical candidate and I would advise against reverse shoulder arthroplasty at this time considering his range of motion and mobility. I think it is reasonable to continue conservative management, and I recommended a steroid injections to control symptoms. As for his right shoulder, he has excellent range of motion and is able to form daily activities of life as tolerated without severe pain. We can consider injections if the shoulder becomes symptomatic as well. Patient agrees with above plan and has no further questions. PROCEDURE: left shoulder injection MEDICATION: 2 mL Kenalog 40 mg/1 mL, and 2 mL of 0.25% bupivacaine plain (glenohumeral); 1 mL Kenalog 40 mg/1 mL and 1 mL 0.25% bupivacaine plain (subacromial). TREATMENT GIVEN: I confirmed that the patient does not have a history of prior adverse reactions, active infections, or relevant allergies. There was no erythema or warmth, and the skin was clear. After discussion of the risks including, but not limited to infection, localized soreness and swelling, reaction to medications, the patient consented to proceeding with the procedure. Under sterile conditions, the shoulder was prepped with alcohol and chlorhexadine. Sterile ultrasound gel and the [employer] Ultrasound was used to ensure accurate needle placement. Using a medial approach and a 20-gauge spinal needle, the glenohumeral injection was performed. The needle was then redirected to the subacromial space, placement confirmed with the ultrasound, and the subacromial injection was performed. Ultrasound images were scanned into the patient's chart. The injection was completed without complication and a Band-Aid was applied. The patient tolerated the procedure well and was instructed to avoid strenuous activity for the next 24-48 hours and use ice, NSAIDs, or Tylenol for pain as needed. This note was dictated with speech recognition software. Please excuse any errors in spelling/transcri ption, which may have changed the context of the sentence. [email or web address] Not available 02/14/2025 13:51:29 Plan of Treatment Reminders Order Date Submit Date Provider Last Modified By Organization Details Last Modified Time Details Appointments None recorded. Lab None recorded. Referral None recorded. Procedures None recorded. Surgeries None recorded. Imaging None recorded. Medication Orders Kenalog 40 mg/mL suspension for injection 2024 025 [email or web address] Not available 15:35:54 Patient TargetsNo targets recorded. Patient InstructionsNo instructions recorded. Reason for Referral None Reported. Problems Name Problem SNOMED Code Status Onset Date Resolution Date Notes Provider Name and Address Organization Details Recorded Time Rotator cuff arthropathy of left shoulder 5714424399731 9100 Active 2024 ALEX Baker [address] [place] [address], [phone] , [facility] [place] 13:51:07 Problem Notes None recorded. Procedures Surgical History Date Name Laterality Status Provider Name and Address Organization Details Recorded Time 7 Other completed [place] [facility] [place] 02/14/2025 12:56:13 5 Orthopaedic Surgery completed [place] [facility] 02/14/2025 12:56:13 Imaging Results None recorded. Procedure Notes None recorded. Medical Equipment None Reported. Allergies No known drug allergies Medications Name Sig Start Date Stop Date Status Note LastModified by Organization Details LastModified Time losartan 50 mg tablet Take 1 tablet every day by oral route. active Not Available Not Available No t Available Kenalog 40 mg/mL suspension for injection Take 3 mL by injection route. 2024 active Not Available Not Available Not Avai [email or web address] Effexor XR 150 mg capsule,exten ded release Take 1 capsule every day by oral route. active Not Available Not Available No t Available finasteride 5 mg tablet Take 1 tablet every day by oral route. active Not Available Not Available No t Available Vitals Date Recorded Body height Body mass index (BMI) Body weight Provider Name and Address Organization Details Last Updated DateTime 02/14/2025 172.72 cm 29.6 kg/m2 84079.51 g Jennifer Jah [facility] - [facility] 02/14/2025 13:01:46 Social History None recorded. Functional Status Question Answer Note LastModified by Organizat ion Details LastModified Time What is your level of alcohol consumption? None [email or web address] Information not available 02/14/2025 Do you or have you ever used smokeless tobacco? [id number] [email or web address] Information not available 02/14/2025 What is your occupation? Retired [email or web address] Information not available 02/14/2025 Do you or have you ever used e-cigarettes or vape? Never used electronic cigarettes Information not available 02/14/2025 Mental Status None recorded. Family History Relationship Description Onset Age of this Age Resolved Age Notes LastModified by Organization Details LastModified Time Father No current problems or disability [email or web address] Not available 02/14 13:02:24 Mother No current problems or disability Not available 02/14 13:02:24 Medical History Condition Response High Blood Pressure Y Hearing Loss Y Depression or Anxiety Y Chemical Dependency / Alcoholism Y Past Encounters Encounter ID Performer Location Encounter Start Date Encounter Closed Date Diagnosis/Indication Diagnosis SNOMED-CT Code Diagnosis ICD10 Code Diagnosis Note [id number] ALEX Baker [place] [facility] [address], [address] [place] [address] 02/14/2025 12:36:03 02/14/2025 15:02:55 Rotator cuff arthropathy of left shoulder [id number] M12.812 Health Concerns Section Related Observation LastModified by Organization Detai ls LastModified Time None Recorded Concern Status LastModified by Organization Details LastModified Time None Recorded Advance Directives Directive None Recorded Payers Insurance Date Sequence Insurance Name Policy Number Policy Sawyer Covered Member ID Sawyer Member ID Guarantor Name 02/07/2025 [employer] - SPECIALITY CLAIMS (MEDICARE DME REGION A) Alex Ayon [id number] 1 [id number] Alex Ayon 02/07/2025 1 MEDIC[place] B-[place]: [facility] Alex Ayon [id number] Alex Ayon 02/25/2025 2 [facility] [id number] spring [id number] Alex Ayon Notes Date Note Type Note Provider Name and Address Organization Details Recorded Time 02/14/2025 text/html Alex is a 79-year-old male presenting today with bilateral shoulder pain. He a history of left shoulder rotator cuff repair done in 2012. At this time his left shoulder is significantly worse than his right shoulder which started 6 months ago. He denies any trauma to the area. Pain is 7/8 out of 10 at its worst and endorses dull aching pain at rest, SANE score 49. Pain is worse with movement specifically overhead motions, getting dressed, opening the car door and gardening. He endorses radiating pain to the biceps area after use and endorses a tingling sensation in the bilateral hands, of note he had bilateral trigger finger surgery. He currently manages symptoms with conservative management and Tylenol as needed which improves his pain, no injections, no PT, NSAIDs prn. ALEX Baker [address] [place], [address], [facility] - [facility] 02/15/2025 12:07:39
== END 2025-03-09 15:53 | disposition home or self-care (01) ==
LOC: HO.HOP 11:02
PROVIDERS: PCP Family Medicine; Visit Provider Psychiatry & Neurology Psychiatry
DX: F41.1 Generalized anxiety disorder (principal); F32.5 Major depressive disorder, single episode, in full remission; F10.91 Alcohol use, unspecified, in remission
CPT/HCPCS: 99214

== ENCOUNTER → 2025-03-09 11:02 | Outpatient (BNVA) | payer MEDICARE, OTHER, SELFPAY | PROVIDERS: PCP Family Medicine; Visit Provider Psychiatry & Neurology Psychiatry | DX: F41.1 Generalized anxiety disorder (principal); F32.5 Major depressive disorder, single episode, in full remission; F10.91 Alcohol use, unspecified, in remission | CPT/HCPCS: 99212 ==

== ENCOUNTER 2025-04-05 10:45 | Outpatient (AMB) | payer MEDICARE, OTHER, SELFPAY ==
--- NOTE | 2025-04-05 10:45 | MHC.OFFVIS ---
Intake Visit Reasons: urinary frecuency Intake Note: Patient is present for follow up telehealth for urinary frequency Urology Medication:TOVIAZ Antibiotic Allergy:NONE Blood Thinner:NONE previous PVR :0ML'S Manager [employer] Operations Required: No Accompanied by: Self / Same As Patient Allergies No Known Allergies Allergy (Verified 04/05/25 10:48) HPI Comments Details: Alex Ayon is very pleasant male. He is a patient of Dr Manrique. He is seen for the following urologic conditions - lower urinary tract symptoms Telemedicine Evaluation 15 min Consultation [employer] Shane Video Six-month follow-up Generally happy with Toviaz Less urinary urgency crisis Does have variability Has been on Toviaz for bladder instability Did not tolerate alpha blockers secondary to blood pressure At tadalafil to try and stabilize bladder He wears 2 pads per day and had questions about a male sling Trial pelvic floor exercises Lower Urinary Tract Symptoms: Primarily irritative symptoms Prior medications - Failed oxybutynin secondary to dry mouth and constipation, did not tolerate terazosin secondary to dizziness, Myrbetriq had minimal difference, solifenacin lost effect Current visit is for predominate imitative symptoms. Current treatment includes no medications Prostate Symptom Score 11/24 , Mild (0-8), Bother 3. - PSA 05/26 2.5 Symptoms include 11/24 , incomplete emptying, urgency, weak stream, and are progressing 03/24 , incomplete emptying, weak stream, and are improving. Results from testing include cystoscopy no abnormality seen 08/24 NAD renal/bladder us Yes date 03/16/2020 PVR 10 prostate size 40g Prostate volume 30-50gm. Testing at next visit will include bladder scan. Treatment plan - 2 month follow-up cystoscopy [facility] Medical History (Updated 01/05/25 @ 11:27 by Yazan Antony MD) Major depressive disorder with single episode, in partial remission Major depression in remission Cerebral aneurysm without rupture Generalized anxiety disorder Alcohol use disorder in remission Bladder outlet obstruction Incomplete emptying of bladder Weak urinary stream Urinary urgency Review of Systems Const All systems reviewed & are unremarkable except as noted in HPI and below Reports no additional complaints Resp Reports no additional complaints GI Reports no additional complaints Reports as per HPI Musc Reports no additional complaints Physical Exam Telemedicine evaluation Appropriate responses Regular breathing rate and rhythm HEENT Head: Yes normal to inspection Ears: hearing grossly normal bilaterally Eyes General: appearance normal, both eyes and all related structures Neck Neck: Yes normal visual inspection Chest Chest palpation & inspection: normal inspection of the chest Resp Effort & Inspection: normal respiratory effort and able to speak in complete sentences Telehealth Telehealth Telehealth Platform: [employer] Location of provider rendering services: practice address Location of patient: address on file Patient Identification confirmed using: Name, : Yes Telehealth method: video Patient verbally consented to treatment: Yes Patient verbally consented to billing insurance company: Yes Patient informed of any privacy concerns related to visit: Yes Assessment & Plan Assessment & Plan (1) BPH w urinary obs/LUTS: Code(s): N40.1 - Benign prostatic hyperplasia with lower urinary tract symptoms; N13.8 - Other obstructive and reflux uropathy Category: Medical (2) Overactive bladder: Code(s): N32.81 - Overactive bladder Category: Medical Plan At tadalafil Three-month follow-up Patient Instructions: This note is constructed using voice recognition software. While every effort has been made to ensure accuracy circulation clerk errors may have been included. Imaging studies, laboratory and physical exam results were discussed and reviewed in detail. No major barriers to patient understanding were identified. An opportunity to ask questions regarding the treatment plan was provided. All questions were answered. The patient expressed understanding and agreement with the above treatment plan. The patient is aware they should contact our office by phone for worsening of their current condition or the appearance of new urologic symptoms. Compliance is encouraged with any medications and followup testing that is ordered. It is a privilege to participate in the urologic care of your patient. If you have any questions or concerns regarding treatment for the above conditions, or other urologic issues, please do not hesitate to contact me. The office telephone contact is [phone]. Sincerely, Dr Herbert Kee MD, [facility] - Urology Compassionate Specialist Care for the Genitourinary System Coding Level of Care Code Tele Est Pt Level 4 (17312) Complex EM visit Add On G2211 Diagnoses BPH w urinary obs/LUTS N40.1; N13.8 Overactive bladder N32.81
--- OUTSIDE RECORDS SUMMARY | 2025-04-05 11:58 | XMS_ITS | Data Portability ---
Author Organization [place] - [place] [place] [facility], [facility] - INPATIENT Address [address] [place] [address] Assessment Encounter Date Assessment Date Assessment LastModified [...] and chlorhexadine. Sterile ultrasound gel and the [employer] Ultrasound was used to ensure accurate needle [...] Time Rotator cuff arthropathy of left shoulder [id number] 9100 Active 2024 ALEX Baker [address] [place] [address], [phone] [place] [address] [facility] 13:51:07 Problem Notes None recorded. Procedures Surgical History Date Name Laterality Status Provider Name and Address Organization Details Recorded Time 7 Other completed [place] [facility] 02/14/2025 12:56:13 5 Orthopaedic Surgery completed [place] Jah [facility] 02/14/2025 12:56:13 Imaging Results None recorded. Procedure [...] Updated DateTime 02/14/2025 172.72 cm 29.6 kg/m2 11192.51 g Jennifer Jah [place] - [facility] [place] [facility] 02/14/2025 13:01:46 Social History None recorded. Functional Status Question Answer Note LastModified by Organizat ion Details LastModified Time What is your level of alcohol consumption? None [email or web address] Information not available 02/14/2025 Do you or have you ever used smokeless tobacco? [id number] [email or web address] Information not available 02/14/2025 What is your occupation? Retired Information not available 02/14/2025 Do you or have you ever used e-cigarettes or vape? Never used electronic cigarettes [email or web address] Information not available 02/14/2025 Mental Status None recorded. Family History Relationship Description Onset Age of this Age Resolved Age Notes LastModified by Organization Details LastModified Time Father No current problems or disability [email or web address] Not available 02/14 13:02:24 Mother No current problems or disability Not available 02/14 13:02:24 Medical History Condition Response High Blood Pressure Y Depression or Anxiety Y Hearing Loss Y Chemical Dependency / Alcoholism Y Past Encounters Encounter ID Performer Location Encounter Start Date Encounter Closed Date Diagnosis/Indication Diagnosis SNOMED-CT Code Diagnosis ICD10 Code Diagnosis Note [id number] ALEX Baker [place] [facility] [address], [address] [place] [address] 02/14/2025 12:36:03 02/14/2025 15:02:55 Rotator cuff arthropathy of left shoulder [id number] 3889582 M12.812 Health Concerns Section Related Observation LastModified by Organization Detai ls LastModified Time None Recorded Concern Status LastModified by Organization Details LastModified Time None Recorded Advance Directives Directive None Recorded Payers Insurance Date Sequence Insurance Name Policy Number Policy Sawyer Covered Member ID Sawyer Member ID Guarantor Name 02/07/2025 [employer] - SPECIALITY CLAIMS (MEDICARE DME REGION A) Alex Ayon [id number] 1 [id number] Alex Ayon 02/07/2025 1 MEDICARE B-[place]: [facility] Alex Ayon [id number] Alex Ayon 02/25/2025 2 [facility] - [facility] [id number] spring [id number] Alex Ayon Notes Date Note Type Note [...] injections, no PT, NSAIDs prn. ALEX Baker [address] [place] [address], [phone], [facility] - [facility] [place] [facility] 02/15/2025 12:07:39
--- OUTSIDE RECORDS SUMMARY | 2025-04-05 11:58 | XMS_ITS | Clinical Summary ---
Author Organization [facility] Facility Address [address] [place] [address] Care Team Providers Care Spindraw Operator Name Role Phone Cameron Manrique DO Primary Care Provider [phone] Medications losartan (COZAAR) 50 MG tablet TAKE 1 TABLET BY MOUTH EVERY DAY 90 tablet 5 12/28/2024 Active Family History Medical History Relation Comments [...] Due Date Last Done Comments Pneumococcal Vaccine: 50+ Years Completed 07/11/2021, 09/22/2018, 05/08/2016, Additional history exists Pneumococcal Vaccine: Peds (0 to 5 Years) and At-Risk Patients (6 to 49 Years) Discontinued 07/11/2021, 09/22/2018, 05/08/2016, Additional history exists Influenza Vaccine Completed 06/25/2024, , 07/15/2022, Additional history exists Hepatitis B Vaccine Aged Out No longe r eligible based on patient's age to complete this topic Insurance [facility] Care Teams Spindraw Operator Relationship Specialty Start Date End Date Cameron Manrique DO [address] [place] [address], [address] [place] [id number] PCP - General 10/16/20
== END 2025-04-05 11:35 | disposition home or self-care (01) ==
LOC: HO.HUSH 10:45
PROVIDERS: PCP Family Medicine; Visit Provider Urology
DX: N40.1 Benign prostatic hyperplasia with lower urinary tract symptoms (principal); N13.8 Other obstructive and reflux uropathy; N32.81 Overactive bladder
CPT/HCPCS: 99214; G2211

== ENCOUNTER 2025-07-14 11:20 | Outpatient (AMB) | payer MEDICARE, OTHER, SELFPAY ==
--- NOTE | 2025-07-18 15:06 | A.OFFPSYCH_ITS ---
Intake Intake Visit Reasons: depression Allergies No Known Allergies Allergy (Verified 04/05/25 10:48) HPI- Psychiatric Chief Complaint: depression HPI Narrative: Patient is a 80-year-old male with history of recurrent depression and anxiety who was doing significantly better now again more depressed and anxious in the context of new diagnosis of interstitial pulmonary fibrosis. Patient was a dentist for many years apparently there is some association with exposure to potentially toxic aerosolized material. Patient remains sober on Effexor 150 mg Past Psychiatric History: hx recurrent depression anxiety alcohol abuse in past Mental Status Exam Mental Status Exam Narrative: Sad and anxious looking in appearance Patient Appearance: Well Grooomed Patient Orientation: Person, Place, Time and Situation Level of Consciousness: Awake and Appropriate Patient Behavior: Appropriate and Cooperative Mood Description: Apprehensive Affect Description: Appropriate and Constricted Patient Cognition Impaired: No Ability to Follow Directions: Good Speech Pattern: Clear Memory Description: Intact Delusions: Not Present Thought Process: Intact and Rumination Thought Content: positive for Preoccupation Depressive Symptoms: Increased Anxiety, Insomnia, Loss of Int. in Activity, Increased Fatigue and Difficulty Concentrating Judgement: Good Judgement and Insight: Patient has been diagnosed with interstitial pulmonary fibrosis has been short of breath quite concerned and preoccupied with this Increased insomnia decreased energy Assessment and Plan Assessment & Plan (1) Generalized anxiety disorder: Status: Acute Code(s): F41.1 - Generalized anxiety disorder (2) Major depressive disorder, recurrent severe without psychotic features: Status: Acute Code(s): F33.2 - Major depressive disorder, recurrent severe without psychotic features Plan Pt has been inc depressed anxious worried regarding his medical health ck ekg start doxepin hs for anxiety and dysphoria Medications: New doxepin (Silenor) 6 mg PO BEDTIME 30 tabs 1RF sleep Orders: Orders ECG 12 lead EKG 07/14/25 I10 - Essential (primary) hypertension, J84.10 - Pulmonary fibrosis, unspecified Counseling and coordination of Care Pt. Self Management counseling: Cognitive restructuring Details-Self Mgmt counseling: support regarding current stresses Medication management counseling: Effectiveness, Side effects and Dosing range Diagnosis and Prognosis Counseling: Impact of diagnosis on life functions and Adequacy of current interventions Details: I spent [35] minutes reviewing the record, seeing the patient and documenting in the medical record. Counseling provided to the patient/caregiver as outlined below. Addressed patient/caregiver concerns regarding current medication regime including effective adherence. Addressed patient/caregiver concerns regarding diagnosis and prognosis including accuracy of diagnosis, prognosis over time, impact of diagnosis. Addressed patient/caregiver concerns regarding impact of recent stressors. [facility] Medical History (Updated 07/14/25 @ 11:59 by Yazan Antony MD) Hypertension Major depressive disorder with single episode, in partial remission Major depression in remission Cerebral aneurysm without rupture Generalized anxiety disorder Alcohol use disorder in remission Bladder outlet obstruction Incomplete emptying of bladder Weak urinary stream Urinary urgency Social History: pt lives with retired dentist has 2 children and grandchildren he lists both in [facility] Substance History: hx alcohol dep sober x yrs active in recovery Trauma History: pos Coding Level of Care Code Est Pt Level 3 (97018) Therapy 30m w/E&M (90472) Diagnoses Generalized anxiety disorder F41.1 Major depressive disorder, recurrent severe without psychotic features F33.2
== END 2025-07-14 12:04 | disposition home or self-care (01) ==
LOC: HO.HOP 11:20
PROVIDERS: PCP Family Medicine; Visit Provider Psychiatry & Neurology Psychiatry
DX: F41.1 Generalized anxiety disorder (principal); F33.2 Major depressive disorder, recurrent severe without psychotic features
CPT/HCPCS: 90833; 99213

== ENCOUNTER → 2025-07-14 11:20 | Outpatient (REF) | payer MEDICARE, OTHER, SELFPAY ==
--- NOTE | 2025-07-14 12:12 | ECG_ITS ---
Test Reason : htn Blood Pressure : */* mmHG Vent. Rate : 84 BPM Atrial Rate : 84 BPM P-R Int : 194 ms QRS Dur : 92 ms QT Int : 346 ms P-R-T Axes : 36 2 12 degrees QTcB Int : 408 ms Normal sinus rhythm Inferior infarct , age undetermined Abnormal ECG No previous ECGs available Referred By: Yazan Antony Electronically Signed By: RENNY GARCIA MD
== END ==
LOC: HO.CARD 11:20
PROVIDERS: PCP Family Medicine; Visit Provider Psychiatry & Neurology Psychiatry
DX: F33.2 Major depressive disorder, recurrent severe without psychotic features (principal); F41.1 Generalized anxiety disorder; I10 Essential (primary) hypertension; J84.10 Pulmonary fibrosis, unspecified
CPT/HCPCS: 93005; 99212

== ENCOUNTER → 2025-07-14 12:12 | Outpatient (BNV) | payer MEDICARE, OTHER, SELFPAY | PROVIDERS: PCP Family Medicine; Visit Provider Internal Medicine Cardiovascular Disease | DX: R94.31 Abnormal electrocardiogram [ECG] [EKG] (principal); I10 Essential (primary) hypertension | CPT/HCPCS: 93010 ==

== ENCOUNTER 2025-07-27 09:10 | Outpatient (AMB) | payer MEDICARE, OTHER, SELFPAY ==
--- NOTE | 2025-07-27 09:08 | MHC.OFFVIS ---
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 He is a patient of Dr Manrique. He is seen for the following urologic conditions - lower urinary tract symptoms Has been on combination Toviaz with tadalafil for stability Did not see much benefit Had stopped medications Did notice benefit from pelvic floor exercises We will put back on finasteride Lower Urinary Tract Symptoms: Primarily irritative symptoms Prior medications - Failed oxybutynin secondary to dry mouth and constipation, did not tolerate terazosin secondary to dizziness, Myrbetriq had minimal difference, solifenacin lost effect Current visit is for predominate imitative symptoms. Current treatment includes no medications Prostate Symptom Score 11/24 , Mild (0-8), Bother 3. - PSA 05/26 2.5 Symptoms include 11/24 , incomplete emptying, urgency, weak stream, and are progressing 03/24 , incomplete emptying, weak stream, and are improving. Results from testing include cystoscopy no abnormality seen 08/24 NAD renal/bladder us Yes date 03/16/2020 PVR 10 prostate size 40g Prostate volume 30-50gm. Testing at next visit will include bladder scan. Treatment plan - 2 month follow-up cystoscopy [facility] Medical History (Updated 07/14/25 @ 11:59 by Yazan Antony MD) Hypertension Major depressive disorder with single episode, in partial remission Major depression in remission Cerebral aneurysm without rupture Generalized anxiety disorder Alcohol use disorder in remission Bladder outlet obstruction Incomplete emptying of bladder Weak urinary stream Urinary urgency Review of Systems Const Denies chills and Denies fever(s) Card Reports no additional complaints and Denies syncope Resp Denies cough GI Denies abdominal pain and Denies heartburn Reports as per HPI and Denies change in libido Neuro Denies syncope Psych Denies change in libido Endo Denies change in libido Physical Exam Const General: cooperative, healthy appearing, comfortable and no acute distress Orientation/consciousness: patient oriented x3 HEENT Face and sinus: Yes normal facial exam Mouth: moist mucous membranes Neck Neck: Yes normal visual inspection, Yes full ROM and Yes trachea midline Chest Chest palpation & inspection: normal inspection of the chest Resp Effort & Inspection: normal respiratory effort, able to speak in complete sentences and no respiratory distress GI Inspection: Yes normal to inspection Back/Spine/Pelvis Cervical Spine: normal cervical lordosis Thoracic/Lumbar Spine: thoracic and lumbar spine normal to inspection Skin General skin exam: no rashes or lesions noted Neuro General: patient oriented x3, gait normal, tone normal and moves all extremities Extrem General: Yes normal to inspection and Yes capillary refill normal Office Procedures Post Void Residual Post Residual Void Post Void Residual (PVR): 82 [id number] Void Residual by ultrasound Results AMB Urinalysis, Automated UA Leukoctes 0 Elizabeth/uL Last Edit by JACQUIE Hodges on 07/27/25 09:21 UA Nitrite Last Edit by JACQUIE Hodges on 07/27/25 09:21 UA Urobilinogen 0.2 mg/dL Last Edit by JACQUIE Hodges on 07/27/25 09:21 UA Protein 15 mg/dL Last Edit by JACQUIE Hodges on 07/27/25 09:21 UA pH 6.0 Last Edit by JACQUIE Hodges on 07/27/25 09:21 UA Blood 0 Nacho/uL Last Edit by JACQUIE Hodges on 07/27/25 09:21 UA Specific [place] 1.020 Last Edit by JACQUIE Hodges on 07/27/25 09:21 UA Ketone Last Edit by JACQUIE Hodges on 07/27/25 09:21 UA Bilirubin 0 mg/dL Last Edit by JACQUIE Hodges on 07/27/25 09:21 UA Glucose 0 mg/dL Last Edit by JACQUIE Hodges on 07/27/25 09:21 Results Reviewed Results Reviewed: Laboratory Last Values Urine pH (Auto) 6.0 07/27/25 09:20 Specific [place] (Auto) 1.020 07/27/25 09:20 Urine Protein (Auto) 15 mg/dL 07/27/25 09:20 Glucose (UA)(Auto) 0 mg/dL 07/27/25 09:20 Urine Blood (Auto) 0 Nacho/uL 07/27/25 09:20 Urine Bilirubin (Auto) 0 mg/dL 07/27/25 09:20 Urine Urobilinogen (Auto) 0.2 mg/dL 07/27/25 09:20 Leukocyte Esterase (Auto) 0 Elizabeth/uL 07/27/25 09:20 Assessment & Plan Assessment & Plan (1) BPH w urinary obs/LUTS: Code(s): N40.1 - Benign prostatic hyperplasia with lower urinary tract symptoms; N13.8 - Other obstructive and reflux uropathy Category: Medical (2) Weak urinary stream: Code(s): R39.12 - Poor urinary stream Category: Medical (3) Nocturia more than twice per night: Code(s): R35.1 - Nocturia Category: Medical Plan Six-month follow-up Orders: Orders AMB Post Void Residual by ultrasound Today N13.8 - Other obstructive and reflux uropathy, N40.1 - Benign prostatic hyperplasia with lower urinary tract symptoms AMB Urinalysis Automated Today Z13.9 - Encounter for screening, unspecified Medications: New finasteride 5 mg PO DAILY 90 tabs 1RF 90 days R35.1 - Nocturia Discontinued fesoterodine ER (Toviaz) Discontinued Reason: Patient Completed Course 8 mg PO DAILY 90 days 90 tabs 3RF N32.81 - Overactive bladder, N39.41 - Urge incontinence tadalafil [id number] [facility] [id number] Member [id number] Discontinued Reason: Patient Completed Course 5 mg PO DAILY 90 days 90 tabs 0RF sexual activity N13.8 - Other obstructive and reflux uropathy, N40.1 - Benign prostatic hyperplasia with lower urinary tract symptoms Patient Instructions: This note is constructed using voice recognition software. 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 Imaging studies, laboratory and physical exam results were discussed and reviewed in detail. No major barriers to patient understanding were identified. An opportunity to ask questions regarding the treatment plan was provided. All questions were answered. The patient expressed understanding and agreement with the above treatment plan. The patient is aware they should contact our office by phone for worsening of their current condition or the appearance of new urologic symptoms. Compliance is encouraged with any medications and followup testing that is ordered. It is a privilege to participate in the urologic care of your patient. If you have any questions or concerns regarding treatment for the above conditions, or other urologic issues, please do not hesitate to contact me. The office telephone contact is [phone]. Sincerely, Dr Herbert Kee MD, [facility] - Urology Compassionate Specialist Care for the Genitourinary System Coding Level of Care Code Est Pt Level 4 (99070) Complex EM visit Add On G2211 Diagnoses BPH w urinary obs/LUTS N40.1; N13.8 Weak urinary stream R39.12 Nocturia more than twice per night R35.1 CPT Codes Post Residual Void - PVR CPT Code: 84306-Eswr Void Residual by ultrasound ([id number])
== END 2025-07-27 09:58 | disposition home or self-care (01) ==
LOC: HO.HUSH 09:21
PROVIDERS: PCP Family Medicine; Visit Provider Urology
DX: N40.1 Benign prostatic hyperplasia with lower urinary tract symptoms (principal); N13.8 Other obstructive and reflux uropathy; R39.12 Poor urinary stream; R35.1 Nocturia; Z13.9 Encounter for screening, unspecified
CPT/HCPCS: 99214; G2211

== ENCOUNTER → 2025-07-27 09:10 | Outpatient (BNVA) | payer MEDICARE, OTHER, SELFPAY | PROVIDERS: PCP Family Medicine; Visit Provider Urology | DX: N40.1 Benign prostatic hyperplasia with lower urinary tract symptoms (principal); N13.8 Other obstructive and reflux uropathy; R39.12 Poor urinary stream; R35.1 Nocturia | CPT/HCPCS: 51798; 81003; 99212 ==